=== PATIENT | male | born 1950 ===

== ENCOUNTER 2021-02-08 17:15 | Inpatient (IN) | payer MEDICARE, MEDICAID ==
[~2021-02-08] VITALS: Ht 170.2 cm; Wt 63.1 kg
[2021-02-08] MEDS ORDERED: AMLO10TA4 PO (18:48)
[2021-02-08] MEDS ORDERED: CHOL10004 PO (18:48)
[2021-02-08] MEDS ORDERED: CETI10TA16 PO (18:48)
[2021-02-08] MEDS ORDERED: traZODone 50 MG TABLET. PO PRN (20:00)
[2021-02-08] MEDS ORDERED: TAMS0.4C97 PO (20:03)
[2021-02-08] MEDS ORDERED: TRAZ-120 PO ×2 (20:03)
[2021-02-08] MEDS ORDERED: SERT-267 PO (20:03)
[2021-02-08] MEDS ORDERED: LOVA20TA2 PO (20:03)
[2021-02-08] MEDS ORDERED: LISI2.5T12 PO (20:03)
[2021-02-08] MEDS ORDERED: METF500T16 PO (20:03)
[2021-02-08] MEDS ORDERED: MELO7.5T29 PO (20:03)
[2021-02-08] MEDS ORDERED: DONE10TA7 PO (20:03)
[2021-02-08] MEDS: DONEPEZIL HCL 10 MG TABLET PO SCH (21:13)
[2021-02-08] MEDS: traZODone 50 MG TABLET. PO SCH (21:14)
[2021-02-08 21:23] VITALS: BP 135/76
[2021-02-08] MEDS ORDERED: MAG HYDROX/AL HYDROX/SIMETH 30 ML ORAL.SUSP PO PRN (21:30)
[2021-02-08] MEDS ORDERED: MAGNESIUM HYDROXIDE 2,400 MG/30 ML ORAL.SUSP. PO PRN (21:30)
[2021-02-08] MEDS ORDERED: ACETAMINOPHEN 325 MG TABLET PO PRN (21:30)
[2021-02-08] MEDS ORDERED: METHYL SALICYLATE/MENTHOL TOPICAL OINTMENT 57GM TUBE. TP PRN (21:30)
--- NOTE | 2021-02-09 00:50 | NUR ---
Admission Note with Justification for Admission to [facility] Patient admitted to [facility] for protective oversight for emergency stabilization of acute psychiatric crisis. Pt admitted from: Hospital ER Mode of arrival: Secure Transport Accompanied By: Secure Transport Precipitating behaviors that initiated intake and admission: Pt aggressive to family, not able to be managed in the current setting. Pt to ED found to need appendectomy. Admitted post op to the [facility] surg floor became more confused. Pt will need placement upon discharge most likely. Description of failure of out patient attempts at stabilization in previous setting list behavior and medication trials: meds adjusted, consulted psych. Behaviors and assessment findings upon admission: PT confused and delusional. Thinks he was driving a truck and was routed here accidentally. med compliant and cooperative. Plan: Admit for protective oversight for adjustment and stabilization of medications, behaviors and mood. Intense treatment regimen including groups, medication adjustments, therapy, consistent regimen for ADL's, self care, and sleep hygiene. Daily monitoring by Inpatient staff, Psychiatry, and Medical Physician.
[2021-02-09 06:09] VITALS: BP 138/74
[2021-02-09 06:49] LABS: BASO # 0.1 x10^3/uL (0.0-0.2); BASO % 1 % (0-3); EOS # 0.1 x10^3/uL (0.0-0.7); EOS % 2 % (0-3); HEMATOCRIT 41.2 % (39.0-53.0); HEMOGLOBIN 14.2 g/dL (13.0-17.5); LYMPH # 2.4 x10^3/uL (1.0-4.8); LYMPH % 29 % (24-48); MEAN CORPUSCULAR HEMOGLOBIN 34 pg (25-35); MEAN CORPUSCULAR HGB CONC 34 g/dL (31-37); MEAN CORPUSCULAR VOLUME 100 fL (79-100); MONO # 0.6 x10^3/uL (0.0-1.1); MONO % 7 % (0-9); NEUT # 5.2 x10^3uL (1.8-7.7); NEUT % 62 % (31-73); PLATELET COUNT 325 x10^3/uL (140-400); RED BLOOD COUNT 4.12 x10^6/uL (4.30-5.70); RED CELL DISTRIBUTION WIDTH 14.1 % (11.5-14.5); WHITE BLOOD COUNT 8.5 x10^3/uL (4.0-11.0)
[2021-02-09 06:58] LABS: ALBUMIN 3.7 g/dL (3.4-5.0); ALBUMIN/GLOBULIN RATIO 0.9 (1.0-1.7); CALCIUM 9.1 mg/dL (8.5-10.1); CREATININE 0.9 mg/dL (0.7-1.3); GFR 83.2; POTASSIUM 3.5 mmol/L (3.5-5.1); TOTAL BILIRUBIN 0.5 mg/dL (0.2-1.0); TOTAL PROTEIN 7.8 g/dL (6.4-8.2)
[2021-02-09] MEDS: SERTRALINE 25 MG TABLET. PO SCH (09:02)
[2021-02-09] MEDS: TAMSULOSIN 0.4 MG CAP.ER.24H. PO SCH (11:00)
[2021-02-09] MEDS: LISINOPRIL 2.5 MG TABLET PO SCH (11:28)
[2021-02-09] MEDS: CETIRIZINE HCL 10 MG TABLET PO SCH (11:29)
[2021-02-09] MEDS: amLODIPine BESYLATE 10 MG TABLET PO SCH (11:29)
--- NOTE | 2021-02-09 11:35 | CONS ---
DATE OF CONSULTATION: 02/09/2021 ATTENDING PHYSICIAN: Dr. Hung. We are asked to see this patient for medical consultation. HISTORY OF PRESENT ILLNESS: The patient is a 70-year-old gentleman who came from [facility]. He is a [facility]. He is profoundly demented. He has been quite agitated. He has been living with his niece who has been the primary afloat cryptologic manager. She cannot manage him anymore. It is interestingly enough, he also had medical issues, necessitating admission. He had acute appendicitis and Dr. Naveen Morrison did a recent laparoscopic appendectomy. The wound is clean and dry. PAST MEDICAL HISTORY: Significant for profound dementia. He has agitation. He has benign prostatic hypertrophy, old stroke with minimal residual. He normally doctors at the [facility]. Alcohol and tobacco use is unclear. He is not actively drinking or smoking. ALLERGIES: He has no known drug allergies. CURRENT MEDICATIONS: Include cetirizine, Aricept, Flomax, lovastatin, amlodipine, lisinopril, meloxicam, Zoloft, trazodone, metformin, and vitamin D. FAMILY HISTORY: Unobtainable. REVIEW OF SYSTEMS: Significant for aggressive behavior. He is very forgetful, agitated, impulsive behavior. His niece cannot manage him currently. PHYSICAL EXAMINATION: GENERAL: When I saw him, this is a pleasant, confused elderly gentleman. INITIAL VITAL SIGNS: Showed a blood pressure of 130/76 mmHg, pulse is 72 per minute and regular. He was afebrile, oxygen saturation 97% on room air. HEENT: Head is without trauma. Pupils are reactive. Sclerae nonicteric. Oropharynx is clear. NECK: Supple, no bruits. LUNGS: Clear to auscultation. CARDIOVASCULAR: Regular heart tones. No gallops. ABDOMEN: Soft, scaphoid, nontender to palpation. There is still a bandage over his trocar scars. The wounds are clean and dry. NEUROLOGIC FINDINGS: Focally intact. Pleasantly confused. SKIN: Warm and dry. PERTINENT LABORATORY STUDIES: Admission hemoglobin was 14.2 g/dL with a white count of 8500. ASSESSMENT: 1. This 70-year-old gentleman has profound dementia with behavioral issues. 2. Recent appendicitis, resulting in laparoscopic appendectomy. He is stable from a postoperative standpoint. 3. Essential hypertension. 4. Hyperlipidemia. 5. History of remote cerebrovascular accident with residual deficits. RECOMMENDATIONS: 1. The patient is stable from a medical standpoint. 2. I reviewed his meds and restart his home meds. 3. Thank you again for asking me to see this patient for consultation. We shall gladly follow him during his inpatient course. SHARON DR: Mesha TID: [id number]
--- NOTE | 2021-02-09 14:29 | NUR ---
PATIENT IS AWAKE IN HIS ROOM UPON ASSESSMENT, NICE AND PLEASANT, COOPERATIVE AND COMPLIANT WITH MEDICATIONS. PATIENT STATED HE IS IN [facility] TO SEE THE DOCTOR, STATED HE HAD APPENDECTOMY LAST WEEK AND DEMONSTRATED HIS WOUND DRESSING TO LOW ABDOMEN, DENIED ANY PAIN, STATED IT IS JUST A MILD TENDERNESS. PATIENT WAS OBSERVED LATER IN HIS ROOM READING MAGAZINE. HUMZA.
[2021-02-09 14:58] LABS: THYROID STIM HORMONE (TSH) 0.336 uIU/mL (0.358-3.740)
[2021-02-09 15:45] VITALS: BP 117/68
[2021-02-09] MEDS: metFORMIN 500 MG TABLET PO SCH (17:26)
[2021-02-09] MEDS: traZODone 50 MG TABLET. PO SCH (20:56)
[2021-02-09] MEDS: DONEPEZIL HCL 10 MG TABLET PO SCH (20:56)
[2021-02-09] MEDS: ATORVASTATIN CALCIUM 10 MG TABLET. PO SCH (20:57)
--- NOTE | 2021-02-09 22:44 | HP ---
DATE OF SERVICE: 02/09/2021 ADMIT DATE: 02/08/2021 PSYCHIATRIC ADMISSION HISTORY/EVALUATION This is a late entry, date of service 02/08, covers elements not covered in my initial note of 02/08. I met with the patient on the evening of 02/08 prior to that. Discussed with Julianna Gonzáles, habitat management coordinator, and nursing staff to review. Referral information from [facility] in [place]/[facility]. IDENTIFYING DATA: The patient is a 70-year-old male with a diagnosis of dementia with behavioral disturbance, referred to us from [facility] where he presented with his niece from his home on account of worsening confusion, forgetfulness, increased hostility and aggressive behaviors towards his niece. He was agitated, yelling out, restless, sundowning. The niece was unable to manage him at home. He was impulsive, behaviors were deemed dangerous, unmanageable, had failed outpatient psychiatric intervention resulting in this referral. CHIEF COMPLAINT: "I have been here a long time. The year is 2020. No, I do not know who the president is or who was the president before him." The patient responds to my specify questions to him. HISTORY OF PRESENT ILLNESS: The patient has a history of major neurocognitive disorder, Alzheimer, vascular with delusion, depression, behavioral disturbance. He has been residing with his niece, getting more confused, agitated, paranoid, delusional, aggressive, disruptive. He has had sleep and appetite changes. No active suicidal or homicidal ideation. PAST PSYCHIATRIC HISTORY: As above. MEDICAL HISTORY: Status post nondisplaced intertrochanteric fracture, right femur, 10/21/2020; diabetes mellitus; seizure disorder; history of appendectomy, 02/06/2021; hyperlipidemia; BPH; history of CVA; Accu-Cheks b.i.d. ALLERGIES: Negative. CODE STATUS: Full code. DIET: Diabetic, lactose-free, takes medications crushed in pudding. Ambulates independently with walker. CURRENT PSYCHOTROPICS: Zoloft 12.5 mg daily, trazodone 50 mg at bedtime, Aricept 10 mg at bedtime. FAMILY HISTORY: Noncontributory. SOCIAL HISTORY: No history of alcohol, drug abuse, physical, sexual or elder abuse history is noted. He is not known to be a perpetrator. REACTION TO HOSPITALIZATION: The patient oblivious of this. ASSETS: Supportive family. REVIEW OF SYSTEMS: No CV, , pulmonary, eye, ENT system symptoms on review. Gait slightly unsteady. MENTAL STATUS EXAM: The patient is oriented to himself. Insight, judgment, recent and remote memory, attention, concentration, fund of knowledge poor consistent with his diagnosis. DIAGNOSES: Major neurocognitive disorder; Alzheimer; vascular with delusion; depression; behavioral disturbance; anxiety disorder, unspecified; impulse control disorder, unspecified. Rest as above. PLAN: Admit to geropsychiatry unit at [facility]. I will see the patient daily individually from a psychiatric standpoint, medical followup, Dr. Zarate/Dr. Collins. Continue current psychotropics. Observe baseline, then adjust as clinically indicated. ESTIMATED LENGTH OF STAY: 10-12 days. DISPOSITION PLANS: The patient will possibly need placement depending on his evaluation and treatment and stabilization during this hospitalization. ABBIE DR: Bennett TID: [id number]
--- NOTE | 2021-02-09 22:52 | PDOC ---
Exam Note: Xavi Note: Late entry for 02/08/2021. Please also refer to the separate dictated note~for this date of service dictated separately.~Patient seen individually. Discussed the patient with Nursing staff reviewed the chart.~Reviewed interim history and current functioning. Reviewed vital signs,~Labs/ Radiology~and current medic ations noted below. Continue current treatment with the changes noted in the dictated addendum note Assessment: Vital Signs/I&O: Vital Signs Date Time Temp Pulse Resp B/P (MAP) Pulse Ox O2 Delivery O2 Flow Rate FiO2 02/09/21 15:45 98.0 87 18 117/68 (84) 97 I & O 02/08/21 02/08/21 02/09/21 15:00 23:00 07:00 Intake Total 100 ml Balance 100 ml Labs: Laboratory Tests Test 02/09/21 06:24 White Blood Count 8.5 x10^3/uL (4.0-11.0) Red Blood Count 4.12 x10^6/uL (4.30-5.70) L Hemoglobin 14.2 g/dL (13.0-17.5) Hematocrit 41.2 % (39.0-53.0) Mean Corpuscular Volume 100 fL (79-100) Mean Corpuscular Hemoglobin 34 pg (25-35) Mean Corpuscular Hemoglobin Concent 34 g/dL (31-37) Red Cell Distribution Width 14.1 % (11.5-14.5) Platelet Count 325 x10^3/uL (140-400) Neutrophils (%) (Auto) 62 % (31-73) Lymphocytes (%) (Auto) 29 % (24-48) Monocytes (%) (Auto) 7 % (0-9) Eosinophils (%) (Auto) 2 % (0-3) Basophils (%) (Auto) 1 % (0-3) Neutrophils # (Auto) 5.2 x10^3uL (1.8-7.7) Lymphocytes # (Auto) 2.4 x10^3/uL (1.0-4.8) Monocytes # (Auto) 0.6 x10^3/uL (0.0-1.1) Eosinophils # (Auto) 0.1 x10^3/uL (0.0-0.7) Basophils # (Auto) 0.1 x10^3/uL (0.0-0.2) D-Dimer (Celina) 1.14 mg/L (0.00-0.50) H Sodium Level 139 mmol/L (136-145) Potassium Level 3.5 mmol/L (3.5-5.1) Chloride Level 102 mmol/L (98-107) Carbon Dioxide Level 30 mmol/L (21-32) Anion Gap 7 (6-14) Blood Urea Nitrogen 19 mg/dL (8-26) Creatinine 0.9 mg/dL (0.7-1.3) Estimated GFR (Cockcroft-Gault) 83.2 BUN/Creatinine Ratio 21 (6-20) H Glucose Level 187 mg/dL (70-99) H Calcium Level 9.1 mg/dL (8.5-10.1) Magnesium Level 2.0 mg/dL (1.8-2.4) Iron Level 125 ug/dL (65-175) Total Iron Binding Capacity 303 ug/dL (250-450) Iron Saturation 41 % (15-34) H Total Bilirubin 0.5 mg/dL (0.2-1.0) Aspartate Amino Transferase (AST) 20 U/L (15-37) Alanine Aminotransferase (ALT) 22 U/L (16-63) Alkaline Phosphatase 92 U/L (46-116) Total Protein 7.8 g/dL (6.4-8.2) Albumin 3.7 g/dL (3.4-5.0) Albumin/Globulin Ratio 0.9 (1.0-1.7) L Triglycerides Level 190 mg/dL (0-150) H Cholesterol Level 178 mg/dL (0-200) LDL Cholesterol, Calculated 83 mg/dL (0-100) VLDL Cholesterol, Calculated 38 mg/dL (0-40) Non-HDL Cholesterol Calculated 121 mg/dL (0-129) HDL Cholesterol 57 mg/dL (40-60) Cholesterol/HDL Ratio 3.0 Vitamin B12 Level 301 pg/mL (247-911) 25-Hydroxy Vitamin D Total 32.7 ng/mL (30-100) Thyroid Stimulating Hormone (TSH) 0.336 uIU/mL (0.358-3.740) Thyroxine (T4) 9.0 ug/dL (4.5-12.0) Total Triiodothyronine (TT3) 75 ng/dL (71-180) Treponema pallidum Antibody Nonreactive (Nonreactive) Current Medications: Meds: Laboratory Tests Test 02/09/21 06:24 White Blood Count 8.5 x10^3/uL Red Blood Count 4.12 x10^6/uL Hemoglobin 14.2 g/dL Hematocrit 41.2 % Mean Corpuscular Volume 100 fL Mean Corpuscular Hemoglobin 34 pg Mean Corpuscular Hemoglobin Concent 34 g/dL Red Cell Distribution Width 14.1 % Platelet Count 325 x10^3/uL Neutrophils (%) (Auto) 62 % Lymphocytes (%) (Auto) 29 % Monocytes (%) (Auto) 7 % Eosinophils (%) (Auto) 2 % Basophils (%) (Auto) 1 % Neutrophils # (Auto) 5.2 x10^3uL Lymphocytes # (Auto) 2.4 x10^3/uL Monocytes # (Auto) 0.6 x10^3/uL Eosinophils # (Auto) 0.1 x10^3/uL Basophils # (Auto) 0.1 x10^3/uL D-Dimer (Celina) 1.14 mg/L Sodium Level 139 mmol/L Potassium Level 3.5 mmol/L Chloride Level 102 mmol/L Carbon Dioxide Level 30 mmol/L Anion Gap 7 Blood Urea Nitrogen 19 mg/dL Creatinine 0.9 mg/dL Estimated GFR (Cockcroft-Gault) 83.2 BUN/Creatinine Ratio 21 Glucose Level 187 mg/dL Calcium Level 9.1 mg/dL Magnesium Level 2.0 mg/dL Iron Level 125 ug/dL Total Iron Binding Capacity 303 ug/dL Iron Saturation 41 % Total Bilirubin 0.5 mg/dL Aspartate Amino Transf (AST/SGOT) 20 U/L Alanine Aminotransferase (ALT/SGPT) 22 U/L Alkaline Phosphatase 92 U/L Total Protein 7.8 g/dL Albumin 3.7 g/dL Albumin/Globulin Ratio 0.9 Triglycerides Level 190 mg/dL Cholesterol Level 178 mg/dL LDL Cholesterol, Calculated 83 mg/dL VLDL Cholesterol, Calculated 38 mg/dL Non-HDL Cholesterol Calculated 121 mg/dL HDL Cholesterol 57 mg/dL Cholesterol/HDL Ratio 3.0 Vitamin B12 Level 301 pg/mL 25-Hydroxy Vitamin D Total 32.7 ng/mL Thyroid Stimulating Hormone (TSH) 0.336 uIU/mL Thyroxine (T4) 9.0 ug/dL Total Triiodothyronine 75 ng/dL Treponema pallidum Antibody Nonreactive Current Medications Medications (Trade) Dose Ordered Sig/Melinda Route PRN Reason Start Time Stop Time Status Last Admin Dose Admin Donepezil HCl (Aricept) 10 mg QHS PO 02/08/21 21:00 02/09/21 20:56 Trazodone HCl (Desyrel) 12.5 mg PRN TID PRN PO AGITATION/ANXIETY 02/08/21 20:00 Trazodone HCl (Desyrel) 50 mg QHS PO 02/08/21 21:00 02/09/21 20:56 Sertraline HCl (Zoloft) 12.5 mg DAILY PO 02/09/21 09:00 02/09/21 09:02 Acetaminophen (Tylenol) 650 mg PRN Q6HRS PRN PO MILD PAIN / TEMP > 100.3'F 02/08/21 21:30 Multi-Ingredient Ointment (Analgesic [place]) 1 melchor PRN QID PRN TP MUSCLE PAIN 02/08/21 21:30 Al Hydroxide/Mg Hydroxide (Mylanta Plus Xs) 15 ml PRN AFTMEALHC PRN PO DYSPEPSIA 02/08/21 21:30 Magnesium Hydroxide (Milk Of Magnesia) 2,400 mg PRN QHS PRN PO CONSTIPATION 02/08/21 21:30 Amlodipine Besylate (Norvasc) 10 mg DAILY PO 02/09/21 11:00 02/09/21 11:29 Cetirizine HCl (ZyrTEC) 10 mg DAILY PO 02/09/21 11:00 02/09/21 11:29 Lisinopril (Prinivil) 2.5 mg DAILY PO 02/09/21 11:00 02/09/21 11:28 Metformin HCl (Glucophage) 500 mg DAILYWSUP PO 02/09/21 17:00 02/09/21 17:26 Tamsulosin HCl (Flomax) 0.4 mg DAILY PO 02/09/21 11:00 02/09/21 11:00 Atorvastatin Calcium (Lipitor) 5 mg QHS PO 02/09/21 21:00 02/09/21 20:57 Current Medications Medications (Trade) Dose Ordered Sig/Melinda Route PRN Reason Start Time Stop Time Status Last Admin Dose Admin Sertraline HCl (Zoloft) 12.5 mg DAILY PO 02/09/21 09:00 02/09/21 09:02 Amlodipine Besylate (Norvasc) 10 mg DAILY PO 02/09/21 11:00 02/09/21 11:29 Cetirizine HCl (ZyrTEC) 10 mg DAILY PO 02/09/21 11:00 02/09/21 11:29 Lisinopril (Prinivil) 2.5 mg DAILY PO 02/09/21 11:00 02/09/21 11:28 Metformin HCl (Glucophage) 500 mg DAILYWSUP PO 02/09/21 17:00 02/09/21 17:26 Tamsulosin HCl (Flomax) 0.4 mg DAILY PO 02/09/21 11:00 02/09/21 11:00 Atorvastatin Calcium (Lipitor) 5 mg QHS PO 02/09/21 21:00 02/09/21 20:57 I have reviewed the current psychotropics carefully including drug interactions. Risk benefit ratio favors no change other than as noted in my dictated progress note. Diagnosis: Problems: (1) Major neurocognitive disorder (2) Dementia in Alzheimer's disease with delusions (3) Dementia in Alzheimer's disease with depression (4) Dementia in Alzheimer's disease with early onset with behavioral disturbance (5) Dementia, vascular, with delusions (6) Dementia, vascular, with depression (7) Anxiety disorder, unspecified (8) Impulse control disorder, unspecified FAROOQ DUMONT MD Feb 09, 2021 22:52
--- NOTE | 2021-02-09 22:52 | PDOC ---
Exam Note: Xavi Note: Please also refer to the separate dictated note~for this date of service dictated separately.~Patient seen individually. Discussed the patient with Nursing staff reviewed the chart.~Reviewed interim history and current functioning. Reviewed vital signs,~Labs/ Radiology~and current medications noted below. Continue current treatment with the changes noted in the dictated addendum note Assessment: Vital Signs/I&O: Vital Signs Date Time Temp Pulse Resp B/P (MAP) Pulse Ox O2 Delivery O2 Flow Rate FiO2 02/09/21 15:45 98.0 87 18 117/68 (84) 97 I & O 02/08/21 02/08/21 02/09/21 15:00 23:00 07:00 Intake Total 100 ml Balance 100 ml Labs: Laboratory Tests Test 02/09/21 06:24 White Blood Count 8.5 x10^3/uL (4.0-11.0) Red Blood Count 4.12 x10^6/uL (4.30-5.70) L Hemoglobin 14.2 g/dL (13.0-17.5) Hematocrit 41.2 % (39.0-53.0) Mean Corpuscular Volume 100 fL (79-100) Mean Corpuscular Hemoglobin 34 pg (25-35) Mean Corpuscular Hemoglobin Concent 34 g/dL (31-37) Red Cell Distribution Width 14.1 % (11.5-14.5) Platelet Count 325 x10^3/uL (140-400) Neutrophils (%) (Auto) 62 % (31-73) Lymphocytes (%) (Auto) 29 % (24-48) Monocytes (%) (Auto) 7 % (0-9) Eosinophils (%) (Auto) 2 % (0-3) Basophils (%) (Auto) 1 % (0-3) Neutrophils # (Auto) 5.2 x10^3uL (1.8-7.7) Lymphocytes # (Auto) 2.4 x10^3/uL (1.0-4.8) Monocytes # (Auto) 0.6 x10^3/uL (0.0-1.1) Eosinophils # (Auto) 0.1 x10^3/uL (0.0-0.7) Basophils # (Auto) 0.1 x10^3/uL (0.0-0.2) D-Dimer (Celina) 1.14 mg/L (0.00-0.50) H Sodium Level 139 mmol/L (136-145) Potassium Level 3.5 mmol/L (3.5-5.1) Chloride Level 102 mmol/L (98-107) Carbon Dioxide Level 30 mmol/L (21-32) Anion Gap 7 (6-14) Blood Urea Nitrogen 19 mg/dL (8-26) Creatinine 0.9 mg/dL (0.7-1.3) Estimated GFR (Cockcroft-Gault) 83.2 BUN/Creatinine Ratio 21 (6-20) H Glucose Level 187 mg/dL (70-99) H Calcium Level 9.1 mg/dL (8.5-10.1) Magnesium Level 2.0 mg/dL (1.8-2.4) Iron Level 125 ug/dL (65-175) Total Iron Binding Capacity 303 ug/dL (250-450) Iron Saturation 41 % (15-34) H Total Bilirubin 0.5 mg/dL (0.2-1.0) Aspartate Amino Transferase (AST) 20 U/L (15-37) Alanine Aminotransferase (ALT) 22 U/L (16-63) Alkaline Phosphatase 92 U/L (46-116) Total Protein 7.8 g/dL (6.4-8.2) Albumin 3.7 g/dL (3.4-5.0) Albumin/Globulin Ratio 0.9 (1.0-1.7) L Triglycerides Level 190 mg/dL (0-150) H Cholesterol Level 178 mg/dL (0-200) LDL Cholesterol, Calculated 83 mg/dL (0-100) VLDL Cholesterol, Calculated 38 mg/dL (0-40) Non-HDL Cholesterol Calculated 121 mg/dL (0-129) HDL Cholesterol 57 mg/dL (40-60) Cholesterol/HDL Ratio 3.0 Vitamin B12 Level 301 pg/mL (247-911) 25-Hydroxy Vitamin D Total 32.7 ng/mL (30-100) Thyroid Stimulating Hormone (TSH) 0.336 uIU/mL (0.358-3.740) Thyroxine (T4) 9.0 ug/dL (4.5-12.0) Total Triiodothyronine (TT3) 75 ng/dL (71-180) Treponema pallidum Antibody Nonreactive (Nonreactive) Current Medications: Meds: Laboratory Tests Test 02/09/21 06:24 White Blood Count 8.5 x10^3/uL Red Blood Count 4.12 x10^6/uL Hemoglobin 14.2 g/dL Hematocrit 41.2 % Mean Corpuscular Volume 100 fL Mean Corpuscular Hemoglobin 34 pg Mean Corpuscular Hemoglobin Concent 34 g/dL Red Cell Distribution Width 14.1 % Platelet Count 325 x10^3/uL Neutrophils (%) (Auto) 62 % Lymphocytes (%) (Auto) 29 % Monocytes (%) (Auto) 7 % Eosinophils (%) (Auto) 2 % Basophils (%) (Auto) 1 % Neutrophils # (Auto) 5.2 x10^3uL Lymphocytes # (Auto) 2.4 x10^3/uL Monocytes # (Auto) 0.6 x10^3/uL Eosinophils # (Auto) 0.1 x10^3/uL Basophils # (Auto) 0.1 x10^3/uL D-Dimer (Celina) 1.14 mg/L Sodium Level 139 mmol/L Potassium Level 3.5 mmol/L Chloride Level 102 mmol/L Carbon Dioxide Level 30 mmol/L Anion Gap 7 Blood Urea Nitrogen 19 mg/dL Creatinine 0.9 mg/dL Estimated GFR (Cockcroft-Gault) 83.2 BUN/Creatinine Ratio 21 Glucose Level 187 mg/dL Calcium Level 9.1 mg/dL Magnesium Level 2.0 mg/dL Iron Level 125 ug/dL Total Iron Binding Capacity 303 ug/dL Iron Saturation 41 % Total Bilirubin 0.5 mg/dL Aspartate Amino Transf (AST/SGOT) 20 U/L Alanine Aminotransferase (ALT/SGPT) 22 U/L Alkaline Phosphatase 92 U/L Total Protein 7.8 g/dL Albumin 3.7 g/dL Albumin/Globulin Ratio 0.9 Triglycerides Level 190 mg/dL Cholesterol Level 178 mg/dL LDL Cholesterol, Calculated 83 mg/dL VLDL Cholesterol, Calculated 38 mg/dL Non-HDL Cholesterol Calculated 121 mg/dL HDL Cholesterol 57 mg/dL Cholesterol/HDL Ratio 3.0 Vitamin B12 Level 301 pg/mL 25-Hydroxy Vitamin D Total 32.7 ng/mL Thyroid Stimulating Hormone (TSH) 0.336 uIU/mL Thyroxine (T4) 9.0 ug/dL Total Triiodothyronine 75 ng/dL Treponema pallidum Antibody Nonreactive Current Medications Medications (Trade) Dose Ordered Sig/Melinda Route PRN Reason Start Time Stop Time Status Last Admin Dose Admin Donepezil HCl (Aricept) 10 mg QHS PO 02/08/21 21:00 02/09/21 20:56 Trazodone HCl (Desyrel) 12.5 mg PRN TID PRN PO AGITATION/ANXIETY 02/08/21 20:00 Trazodone HCl (Desyrel) 50 mg QHS PO 02/08/21 21:00 02/09/21 20:56 Sertraline HCl (Zoloft) 12.5 mg DAILY PO 02/09/21 09:00 02/09/21 09:02 Acetaminophen (Tylenol) 650 mg PRN Q6HRS PRN PO MILD PAIN / TEMP > 100.3'F 02/08/21 21:30 Multi-Ingredient Ointment (Analgesic [place]) 1 melchor PRN QID PRN TP MUSCLE PAIN 02/08/21 21:30 Al Hydroxide/Mg Hydroxide (Mylanta Plus Xs) 15 ml PRN AFTMEALHC PRN PO DYSPEPSIA 02/08/21 21:30 Magnesium Hydroxide (Milk Of Magnesia) 2,400 mg PRN QHS PRN PO CONSTIPATION 02/08/21 21:30 Amlodipine Besylate (Norvasc) 10 mg DAILY PO 02/09/21 11:00 02/09/21 11:29 Cetirizine HCl (ZyrTEC) 10 mg DAILY PO 02/09/21 11:00 02/09/21 11:29 Lisinopril (Prinivil) 2.5 mg DAILY PO 02/09/21 11:00 02/09/21 11:28 Metformin HCl (Glucophage) 500 mg DAILYWSUP PO 02/09/21 17:00 02/09/21 17:26 Tamsulosin HCl (Flomax) 0.4 mg DAILY PO 02/09/21 11:00 02/09/21 11:00 Atorvastatin Calcium (Lipitor) 5 mg QHS PO 02/09/21 21:00 02/09/21 20:57 Current Medications Medications (Trade) Dose Ordered Sig/Melinda Route PRN Reason Start Time Stop Time Status Last Admin Dose Admin Sertraline HCl (Zoloft) 12.5 mg DAILY PO 02/09/21 09:00 02/09/21 09:02 Amlodipine Besylate (Norvasc) 10 mg DAILY PO 02/09/21 11:00 02/09/21 11:29 Cetirizine HCl (ZyrTEC) 10 mg DAILY PO 02/09/21 11:00 02/09/21 11:29 Lisinopril (Prinivil) 2.5 mg DAILY PO 02/09/21 11:00 02/09/21 11:28 Metformin HCl (Glucophage) 500 mg DAILYWSUP PO 02/09/21 17:00 02/09/21 17:26 Tamsulosin HCl (Flomax) 0.4 mg DAILY PO 02/09/21 11:00 02/09/21 11:00 Atorvastatin Calcium (Lipitor) 5 mg QHS PO 02/09/21 21:00 02/09/21 20:57 I have reviewed the current psychotropics carefully including drug interactions. Risk benefit ratio favors no change other than as noted in my dictated progress note. Diagnosis: Problems: (1) Impulse control disorder, unspecified (2) Anxiety disorder, unspecified (3) Dementia, vascular, with depression (4) Dementia, vascular, with delusions (5) Dementia in Alzheimer's disease with depression (6) Dementia in Alzheimer's disease with delusions (7) Major neurocognitive disorder (8) Dementia in Alzheimer's disease with early onset with behavioral disturbance FAROOQ DUMONT MD Feb 09, 2021 22:52
--- NOTE | 2021-02-09 23:14 | NUR ---
Pt wandering the unit tonight with 2 female peers. Pleasantly confused. A/O to name, . Pt stated that he was at an apartment complex and that is was [address]. Compliant with whole medications. No agitation or aggression.
--- NOTE | 2021-02-10 00:53 | PN ---
DATE: 02/09/2021 PSYCHIATRIC PROGRESS NOTE This note covers elements not covered in my initial note 02/09/2021. I met with the patient individually on evening of 02/09/2021. SUBJECTIVE: Per RENAY Perez, the patient remains confused, slept 6-3/4 hours previous night, anxious, restless, is gravitating towards other demented patients. REVIEW OF SYSTEMS: No CV, , pulmonary, eye, ENT system symptoms on review. Reliability poor. MENTAL STATUS EXAMINATION: Oriented to himself. Insight, judgment, recent and remote memory, attention, concentration, fund of knowledge poor consistent with his diagnosis: IMPRESSION: Major neurocognitive disorder, Alzheimer, vascular with delusion, depression, behavioral disturbance, anxiety disorder, unspecified; impulse control disorder, unspecified. Rest unchanged from before. PLAN: Continue the patient on his current psychotropics, Aricept 10 mg at bedtime, Zoloft 12.5 mg a day, trazodone 50 mg at bedtime. Observe baseline, then consider adjusting the Zoloft and if aggression resurfaces, may consider treatment on Depakote or if he is psychotic, we will consider atypical antipsychotics. ESTIMATED LENGTH OF STAY: 10-12 days. DISPOSITION PLAN: The patient will probably need placement at discharge. MARIA FERNANDA DR: Bennett TID: [id number]
[2021-02-10 01:13] LABS: HEMOGLOBIN A1C 7.3 % (4.8-5.6)
[2021-02-10 05:52] VITALS: BP 162/74
[2021-02-10] MEDS: amLODIPine BESYLATE 10 MG TABLET PO SCH (08:40)
[2021-02-10] MEDS: SERTRALINE 25 MG TABLET. PO SCH (08:40)
[2021-02-10] MEDS: LISINOPRIL 2.5 MG TABLET PO SCH (08:41)
[2021-02-10] MEDS: TAMSULOSIN 0.4 MG CAP.ER.24H. PO SCH (08:41)
[2021-02-10] MEDS: CETIRIZINE HCL 10 MG TABLET PO SCH (08:41)
--- NOTE | 2021-02-10 10:36 | NUR ---
Nursing note: Pt in room at time of AM med pass and assessment. He is pleasant, compliant with meds whole and cooperative with assessment. He denies having any pain/concerns. Pt has been walking the fried and has been socializing with a couple female pt's on the unit. No behaviors noted at this time. Will continue to monitor.
--- NOTE | 2021-02-10 10:45 | NUR ---
ACTIVITY THERAPY ASSESSMENT completed based on notes, observation and interview. Pt was sitting in the hallway amongst peer. Pt requested to go to room for assessment questions. Pt was pleasant and willing to answer assessment questions. DIGITAL FIELD SERVICE TECHNICIAN, asked pt what he enjoys doing and he said fishing, yardwork, and watching TV. Pt said that he use to like going on walks, crosswords and word searches but is not able to do them as well now. Pt reports that when they go out is when he uses his walker. DIGITAL FIELD SERVICE TECHNICIAN asked pt about his family and he said that he has strained relationship with his and he has no children. Pt said that he came from home but he doesn't picture it as a home. Pt said that he doesn't have many friends either. Pt does not report any stress at this time but when he does experience stress he likes to watch TV to cope. Pt was able to say his birthday but not the current year. Pt was a bit unsure but said that he thought he was in [place]. Pt did report that he does struggle with some memory impairments. DIGITAL FIELD SERVICE TECHNICIAN offered a few magazines which he accepted. Per notes pt has be compliant and interactive sense admission. Initial goal aimed to support socialization and engagement. Pt will participate in at least five Activity Therapy sessions per week.
[2021-02-10 15:56] VITALS: BP 120/69
--- NOTE | 2021-02-10 15:58 | NUR ---
PSYCHOSOCIAL ASSESSMENT ADMISSION DATE: 02/08/21 CONTACT INFORMATION: DPOA/Guardian Contact Name: Dianna Dobbs-carolyneece by marriage/POA Contact Address: [address] [place] [address] [address] Contact Phone #: [phone] ETHNIC ORIGIN: REASONS FOR ADMISSION: Aggressive Agitated Angry Confusion/Disoriented Poor impulse control ADDITIONAL ADMISSION COMMENTS: Per intake record, increasingly hostile,aggressive behavior towards niece, agitated, yelling out, restless, sundowning, niece unable to manage him at home at this time, impulsive. REASON FOR ADMISSION IN PATIENT/FAMILY'S OWN WORDS: As noted above. PATIENT/FAMILY EXPECTATIONS FOR ADMISSION: Per POA, "Get him happy to enjoy the time he's got left." Per Ed, "Have it to the point where I can navigate on my own." LIVING SITUATION: Patient lives with: Extended family Other living arrangements: With Dianna urrutia for the past year. Prior in a residential for two years. Contact Name: Dianna Dobbs Contact Address: [address] [place] [address] [address] [address] Contact Phone #: [phone] FAMILY RELATIONS: Marital Status: # of Marriages: 1 # of Children: 0 [facility] Family Support: Concerned Additional Comments r/t Family: Per report, Ed was to Eboni Paige for approximately 30 years before she . From report, Eboni had bipolar with paranoia tending to isolate themselves from others. Conflict was reported in the family. Ed and Eboni had no children. Ed reported to that he had never been . POA provide this additional information. SIGNIFICANT PSYCHIATRIC/MEDICAL HISTORY: Psychiatric/Treatment History: Ed has had [place] patient mental health services thru [place] [facility] [place]. Ed reported to have struggled with alcohol abuse and drug use (speed) but gave those things up when he was around 39 years old. Pertinent Family History: It was reported that Ed's father may have had dementia. No other mental illness or substance abuse reported in family of origin. HISTORICAL DATA: Childhood Environment: Supportive Childhood Environment Additional Comments: Ed was born in [facility] to Frederick and Alicia Lopez. Frederick was a cobb and Alicia did office work. Ed grew up on a farm in [place]. 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 Ed was the youngest of two children, his older brother being Eneida. Ed described his parents as quiet but supportive. Ed's parents were also described as devoted Catholics. Eneida lives in [facility] but Ed does not have regular contact with him. Trauma History: None Drug Abuse History last 12 months: None Comment: Ed reports a history of smoking, drinking alcohol, and using speed. 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 service: Ed served in the [employer] for three years. He served in the [place] war. Restorationism background: Ed reported he is of the Episcopalian ed. He stated his ed is "quite important" to him and reported that at times of difficulty he depends on God. Sexual orientation: Heterosexual Educational Level: Ed graduated from [employer]. He went on to obtain a bachelors degree in biology from [employer]. Past/Present Interests/Hobbies: Ed has enjoyed fishing, being outdoors, deer hunting, watching tv, reading, and writing. He also likes cats. Financial support/resources: Assisted/Pension Social Security [place] Benefits Monthly income: Unknown-adequate Person handling finances: Dianna Dobbs Do you have a history of legal problems: None reported Cultural considerations: None reported SOCIAL RELATIONSHIPS-CURRENT/PAST: Psychiatrist: ANNALISA Fuentes PCP: MARGOTH Castaneda Counselor/Therapist: N/A Veterans[facility]: As noted Support Group: N/A Chicken Picker/Senior Qa Tester: MARGOTH Wayne Other relationships: Support from ghada STRENGTHS & WEAKNESSES: Patient's strengths: Stable living arrange Education level Ambulatory Patient's weaknesses: Impulsive Health problems Other patient weaknesses: Declining memory PRELIMINARY PLAN OF TREATMENT: Preliminary plan: Dec. Symp. Depression Medication Stabilization Monitor Med Effects Control abnormal behavior Dec. Outbursts Dec. Aggression Other preliminary treatment comments: Ed will be encouraged to attend SW and recreational therapy groups while hospitalized. DISCHARGE PLANNING: Discharge planning/disposition: Home Additional discharge needs identified: F/U with PCP and [place] mental health out patient clinic. Consider day program or PACE services. ADDITIONAL INFORMATION: Other Pertinent Data: SW met with Ed on 02/09/21 to support related to recent admit and complete psychosocial assessment. Ed was sitting on the unit and conversing with two female peers. Ed was agreeable to visit and reported he had been here for "about a week", recalled the year as "2018", recalled the month as "[id number]" and reported he was not in a hospital but was in a mental health facility. Ed needed ample time to process and respond to questions SW asked of him. He had difficulty recalling recent and some remote events. At one point during the conversation, Ed stood up, walked to the hand rail, tapped it two times and came and sat back down. He then repeated this again. SW placed call to Ed's POA this afternoon who provided additional and corrected history. Dianna SMITH, will be involved in team meeting via phone on 02/11/21.
[2021-02-10] MEDS: metFORMIN 500 MG TABLET PO SCH (17:21)
[2021-02-10 17:29] LABS: BILIRUBIN,URINE NEG (NEG); CLARITY,URINE CLEAR; COLOR,URINE YELLOW; GLUCOSE,URINE >=1000 mg/dL (NEG)
[2021-02-10 17:30] LABS: BACTERIA,URINE 0 /HPF (0-FEW); NITRITE,URINE NEG (NEG); RBC,URINE 0 /HPF (0-2); UROBILINOGEN,URINE 0.2 mg/dL (0.2 mg/dL); WBC,URINE 0 /HPF (0-4)
[2021-02-10] MEDS: DONEPEZIL HCL 10 MG TABLET PO SCH (21:16)
[2021-02-10] MEDS: ATORVASTATIN CALCIUM 10 MG TABLET. PO SCH (21:17)
[2021-02-10] MEDS: traZODone 50 MG TABLET. PO SCH (21:17)
--- NOTE | 2021-02-10 21:55 | PDOC ---
Exam Note: Xavi Note: Please also refer to the separate dictated note~for this date of service dictated separately.~Patient seen individually. Discussed the patient with Nursing staff reviewed the chart.~Reviewed interim history and current functioning. Reviewed vital signs,~Labs/ Radiology~and current medications noted below. Continue current treatment with the changes noted in the dictated addendum note Assessment: Vital Signs/I&O: Vital Signs Date Time Temp Pulse Resp B/P (MAP) Pulse Ox O2 Delivery O2 Flow Rate FiO2 02/10/21 15:56 97.8 83 16 120/69 (86) 93 I & O 02/09/21 02/09/21 02/10/21 15:00 23:00 07:00 Intake Total 840 ml 700 ml Balance 840 ml 700 ml Labs: Laboratory Tests Test 02/10/21 06:00 02/10/21 16:50 SARS-CoV-2 (PCR) Not detected (NOT DETECTD) Urine Collection Type Unknown Urine Color Yellow Urine Clarity Clear Urine pH 5.5 Urine Specific [place] 1.020 Urine Protein Neg (NEG-TRACE) Urine Glucose (UA) >=1000 mg/dL (NEG) Urine Ketones (Stick) Trace mg/dL (NEG) Urine Blood Neg (NEG) Urine Nitrite Neg (NEG) Urine Bilirubin Neg (NEG) Urine Urobilinogen Dipstick 0.2 mg/dL (0.2 mg/dL) Urine Leukocyte Esterase Neg (NEG) Urine RBC 0 /HPF (0-2) Urine WBC 0 /HPF (0-4) Urine Bacteria 0 /HPF (0-FEW) Current Medications: Meds: Laboratory Tests Test 02/10/21 06:00 02/10/21 16:50 Coronavirus (COVID-19)(PCR) Not detected Urine Collection Type Unknown Urine Color Yellow Urine Clarity Clear Urine pH 5.5 Urine Specific [place] 1.020 Urine Protein Neg Urine Glucose (UA) >=1000 mg/dL Urine Ketones (Stick) Trace mg/dL Urine Blood Neg Urine Nitrite Neg Urine Bilirubin Neg Urine Urobilinogen Dipstick 0.2 mg/dL Urine Leukocyte Esterase Neg Urine RBC 0 /HPF Urine WBC 0 /HPF Urine Bacteria 0 /HPF Current Medications Medications (Trade) Dose Ordered Sig/Melinda Route PRN Reason Start Time Stop Time Status Last Admin Dose Admin Donepezil HCl (Aricept) 10 mg QHS PO 02/08/21 21:00 02/10/21 21:16 Trazodone HCl (Desyrel) 12.5 mg PRN TID PRN PO AGITATION/ANXIETY 02/08/21 20:00 Trazodone HCl (Desyrel) 50 mg QHS PO 02/08/21 21:00 02/10/21 21:17 Sertraline HCl (Zoloft) 12.5 mg DAILY PO 02/09/21 09:00 02/10/21 18:19 DC 02/10/21 08:40 Acetaminophen (Tylenol) 650 mg PRN Q6HRS PRN PO MILD PAIN / TEMP > 100.3'F 02/08/21 21:30 Multi-Ingredient Ointment (Analgesic [place]) 1 melchor PRN QID PRN TP MUSCLE PAIN 02/08/21 21:30 Al Hydroxide/Mg Hydroxide (Mylanta Plus Xs) 15 ml PRN AFTMEALHC PRN PO DYSPEPSIA 02/08/21 21:30 Magnesium Hydroxide (Milk Of Magnesia) 2,400 mg PRN QHS PRN PO CONSTIPATION 02/08/21 21:30 Amlodipine Besylate (Norvasc) 10 mg DAILY PO 02/09/21 11:00 02/10/21 08:40 Cetirizine HCl (ZyrTEC) 10 mg DAILY PO 02/09/21 11:00 02/10/21 08:41 Lisinopril (Prinivil) 2.5 mg DAILY PO 02/09/21 11:00 02/10/21 08:41 Metformin HCl (Glucophage) 500 mg DAILYWSUP PO 02/09/21 17:00 02/10/21 17:21 Tamsulosin HCl (Flomax) 0.4 mg DAILY PO 02/09/21 11:00 02/10/21 08:41 Atorvastatin Calcium (Lipitor) 5 mg QHS PO 02/09/21 21:00 02/10/21 21:17 Sertraline HCl (Zoloft) 25 mg DAILY PO 02/11/21 09:00 I have reviewed the current psychotropics carefully including drug interactions. Risk benefit ratio favors no change other than as noted in my dictated progress note. Diagnosis: Problems: (1) Impulse control disorder, unspecified (2) Anxiety disorder, unspecified (3) Dementia, vascular, with depression (4) Dementia, vascular, with delusions (5) Dementia in Alzheimer's disease with depression (6) Dementia in Alzheimer's disease with delusions (7) Major neurocognitive disorder (8) Dementia in Alzheimer's disease with early onset with behavioral disturbance FAROOQ DUMONT MD Feb 10, 2021 21:55
[2021-02-11 06:30] VITALS: BP 154/75
--- NOTE | 2021-02-11 06:41 | EKG ---
[address] [address] Test Date: 2021-02-09 Test Time: 09:36:21 Pat Name: SEAN SOLIS Department: Room: [address] [place] [address] Gender: M Detail Manager: : 1950 Requested By: FAROOQ DUMONT Order Number: [id number] Reading MD: Wagner Jeffrey Measurements Intervals [place]hen[place] Rate: P: UT: QRS: QRSD: T: QT: QTc: Interpretive Statements SINUS RHYTHM NON SPECIFIC T WAVE INVERSION ANTERIOR LEADS Electronically Signed On 02-15-2021 14:36:13 CDT by Wagner Jeffrey
[2021-02-11] MEDS: TAMSULOSIN 0.4 MG CAP.ER.24H. PO SCH (09:00)
[2021-02-11] MEDS: LISINOPRIL 2.5 MG TABLET PO SCH (09:06)
[2021-02-11] MEDS: amLODIPine BESYLATE 10 MG TABLET PO SCH (09:06)
[2021-02-11] MEDS: CETIRIZINE HCL 10 MG TABLET PO SCH (09:06)
[2021-02-11] MEDS: SERTRALINE 25 MG TABLET. PO SCH (09:07)
--- NOTE | 2021-02-11 12:02 | TX PLAN ---
Interdisciplinary Tx Plan Admission Information Feb 08, 2021 at 17:15 Legal Status (on Admission): Voluntary, DPOA DPOA/Guardian Name: Dianna Dobbs-ghada by marriage/POA Contact Other Contact Name: Dianna Dobbs Other Contact Verified Code Status: Full Code Allergies: Coded Allergies: No Known Drug Allergies (Unverified , 02/08/21) Estimated Length of Stay: 14 Diagnoses Primary Diagnosis: Major neurocognitive d/o vascular, alzheimers, with delusions, depression, BD; Anxiety d/o unspecified; Impulse control d/o Reasons for Admission: Aggressive, Agitated, Angry, Confusion/Disoriented, Poor impulse control Problem in Patient's Words: As noted above. Additional Admission Comments: Per intake record, increasingly hostile,aggressive behavior towards niece, agitated, yelling out, restless, sundowning, niece unable to manage him at home at this time, impulsive. Problems Active Problems: Hostile Aggressive towards family Yelling out Agitated Restless Impulsive Inactive Problems: Medication complaint Adequate meal intake Averaging 5.5 hours of sleep Pt Strengths/Limitations Ability for [place]: Poor Cognitive Functioning/Ability: Poor Communication Skills/Ability: Fair Financial Resources: Fair Insight/Judgement: Poor Intellectual Ability: Fair Physical Health: Fair Social Skills: Fair Stability in Family: Good Verbal Skills: Fair Discharge Criteria Discharge Criteria: Adequate arrangements @DC, Adequate self-care, Improved behavior Preliminary Discharge Plan Preliminary DC Plan: Home Other Arrangements: Resides with Dianna urrutia Special Precautions Special Precautions: Agitation/Assault Fall Risk: High Initial D/C Plan Will return home with ghada once stable Identified Discharge Needs: F/U with PCP and [place] [facility] out patient [facility]. Consider day program or PACE services. Currently Utilized Resources Currently Utilized Resources/P: [facility] Identified Problems/Hx/Goals Objectives/Short-Term Goals Short Term Goals: Control abnormal behavior, Dec. Aggression, Dec. Outbursts, Dec. Symp. Depression, Medication Stabilization, Monitor Med Effects Short Term Goals in Patient's: Per POA, "Get him happy to enjoy what he's got left." Per Ed, "Have it to the point where I can navigate on my own." Interventions/Frequency Staff Interventions/Frequency&: Nursing to provide routine safety checks, medication administration, and adl support. Psychiatry to see three times weekly. SW to see twice weekly. PT/OT eval and treat as indicated SW and recreational threapy groups as Ed is willing. 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 Social: Ed enjoyed fishing, hunting, and being outdoors. Education: Ed graduated from [employer]. He went on to obtain a bachelors degree in biology from [employer]. Community Follow-up PCP Out patient mental health thru [place] Community Provider/Family Inpu: SARAH Bustamante, participated in team meeting via phone on this date. Treatment Plan Explained Patient/Unemployment Insurance Director had this treatment plan explained to him/her as indicated by the signature below and has been given the opportunity to ask questions and make suggestions: Date: Patient/Unemployment Insurance Director Signature: NICOLE GILBERT Feb 11, 2021 12:02
--- NOTE | 2021-02-11 12:17 | NUR ---
WEEKLY ACTIVITY THERAPY NOTE Date of Admission:02/08/21 Date of AT Assessment: 02/10 Precipitating behaviors that initiated intake and admission:Pt aggressive to family, not able to be managed in the current setting. Pt to ED found to need appendectomy. Admitted post op to the med surg floor became more confused. Pt will need placement upon discharge most likely Goal aimed: support socialization and engagement Initial Goal: Pt will participate in at least five Activity Therapy sessions per week Weekly progress towards goal: goal evaluation begins next week Group participation level: 1 min Weekly highlights: answered a couple grid category questions Monday morning Behaviors observed: pleasant and calm Plan: goal evaluation begins next week Beneficial adaptations: prompting, encouragement
--- NOTE | 2021-02-11 13:59 | NUR ---
Met with Ed this afternoon to complete MMSE. Ed scored 13/30 points indicating possible severe cognitive impairment. Ed was calm and relaxed throughout visit. SW provided Ed with a "fish" word search puzzle and TIME magazine. Ed expressed appreciation.
--- NOTE | 2021-02-11 16:15 | NUR ---
Nursing note: Pt has been pleasant, med compliant and cooperative this shift. He has spent most of the day in the hallway socializing with other pt's. No behaviors noted. Will continue to monitor.
[2021-02-11 16:18] VITALS: BP 149/75
[2021-02-11] MEDS: metFORMIN 500 MG TABLET PO SCH (17:41)
[2021-02-11] MEDS: DONEPEZIL HCL 10 MG TABLET PO SCH (20:46)
[2021-02-11] MEDS: QUEtiapine 25 MG TABLET. PO SCH (20:46)
[2021-02-11] MEDS: ATORVASTATIN CALCIUM 10 MG TABLET. PO SCH (20:46)
[2021-02-11] MEDS: traZODone 50 MG TABLET. PO SCH (20:46)
--- NOTE | 2021-02-11 22:36 | PDOC ---
Exam Note: Xavi Note: Please also refer to the separate dictated note~for this date of service dictated separately.~Patient seen individually. Discussed the patient with Nursing staff reviewed the chart.~Reviewed interim history and current functioning. Reviewed vital signs,~Labs/ Radiology~and current medications noted below. Continue current treatment with the changes noted in the dictated addendum note Assessment: Vital Signs/I&O: Vital Signs Date Time Temp Pulse Resp B/P (MAP) Pulse Ox O2 Delivery O2 Flow Rate FiO2 02/11/21 16:18 98.5 68 18 149/75 (99) 98 I & O 02/10/21 02/10/21 02/11/21 15:00 23:00 07:00 Intake Total 600 ml 540 ml Balance 600 ml 540 ml Current Medications: Meds: Current Medications Medications (Trade) Dose Ordered Sig/Melinda Route PRN Reason Start Time Stop Time Status Last Admin Dose Admin Donepezil HCl (Aricept) 10 mg QHS PO 02/08/21 21:00 02/11/21 20:46 Trazodone HCl (Desyrel) 12.5 mg PRN TID PRN PO AGITATION/ANXIETY 02/08/21 20:00 Trazodone HCl (Desyrel) 50 mg QHS PO 02/08/21 21:00 02/11/21 20:46 Sertraline HCl (Zoloft) 12.5 mg DAILY PO 02/09/21 09:00 02/10/21 18:19 DC 02/10/21 08:40 Acetaminophen (Tylenol) 650 mg PRN Q6HRS PRN PO MILD PAIN / TEMP > 100.3'F 02/08/21 21:30 Multi-Ingredient Ointment (Analgesic [place]) 1 melchor PRN QID PRN TP MUSCLE PAIN 02/08/21 21:30 Al Hydroxide/Mg Hydroxide (Mylanta Plus Xs) 15 ml PRN AFTMEALHC PRN PO DYSPEPSIA 02/08/21 21:30 Magnesium Hydroxide (Milk Of Magnesia) 2,400 mg PRN QHS PRN PO CONSTIPATION 02/08/21 21:30 Amlodipine Besylate (Norvasc) 10 mg DAILY PO 02/09/21 11:00 02/11/21 09:06 Cetirizine HCl (ZyrTEC) 10 mg DAILY PO 02/09/21 11:00 02/11/21 09:06 Lisinopril (Prinivil) 2.5 mg DAILY PO 02/09/21 11:00 02/11/21 09:06 Metformin HCl (Glucophage) 500 mg DAILYWSUP PO 02/09/21 17:00 02/11/21 17:41 Tamsulosin HCl (Flomax) 0.4 mg DAILY PO 02/09/21 11:00 02/11/21 09:00 Atorvastatin Calcium (Lipitor) 5 mg QHS PO 02/09/21 21:00 02/11/21 20:46 Sertraline HCl (Zoloft) 25 mg DAILY PO 02/11/21 09:00 02/11/21 09:07 Quetiapine Fumarate (SEROquel) 25 mg QHS PO 02/11/21 21:00 02/11/21 20:46 Current Medications Medications (Trade) Dose Ordered Sig/Melinda Route PRN Reason Start Time Stop Time Status Last Admin Dose Admin Sertraline HCl (Zoloft) 25 mg DAILY PO 02/11/21 09:00 02/11/21 09:07 Quetiapine Fumarate (SEROquel) 25 mg QHS PO 02/11/21 21:00 02/11/21 20:46 I have reviewed the current psychotropics carefully including drug interactions. Risk benefit ratio favors no change other than as noted in my dictated progress note. Diagnosis: Problems: (1) Impulse control disorder, unspecified (2) Anxiety disorder, unspecified (3) Dementia, vascular, with depression (4) Dementia, vascular, with delusions (5) Dementia in Alzheimer's disease with depression (6) Dementia in Alzheimer's disease with delusions (7) Major neurocognitive disorder (8) Dementia in Alzheimer's disease with early onset with behavioral disturbance FAROOQ DUMONT MD Feb 11, 2021 22:36
--- NOTE | 2021-02-12 04:52 | NUR ---
Nursing Note The patient was located in the hallway for his assessment and medication pass. The patient was interactive with this nurse and was pleasant. The patient took his medication whole. The patient was alert to name, date and location. Currently sleeping in his room.
[2021-02-12 06:13] VITALS: BP 163/81
--- NOTE | 2021-02-12 08:45 | PDOC ---
Exam Note: Xavi Note: This note is a late entry for 02/10/2021 covers elements not covered in my initial note. Subjective: The patient was seen individually in the evening of 02/10/2021 with Elvia NIÑO, discussed and reviewed the chart. The patient slept 5 hours previous night. I met with him in his room in the evening. Patient has been confused, takes his medications whole. UA was repeated straight cath and was negative. Review of Systems: No CV, , pulmonary, eye, ENT system symptoms on review. Reliability poor. Mental Status Exam: The patient is oriented to himself. Insight and judgment, recent and remote memory, attention and concentration, fund of knowledge is poor consistent with his diagnoses. Laboratory Data: Reviewed. Impression: Major neurocognitive disorder Alzheimer, vascular with delusions, depression, behavioral disturbance. Anxiety disorder unspecified. Impulse control disorder unspecified. Plan: Increase Zoloft from 12.5 mg a day to 25 mg a day. Maintain Aricept and trazodone for now. Adjust as clinically indicated. Assessment: Vital Signs/I&O: Vital Signs Date Time Temp Pulse Resp B/P (MAP) Pulse Ox O2 Delivery O2 Flow Rate FiO2 02/12/21 06:13 97.6 72 16 163/81 (108) 98 I & O 02/11/21 02/11/21 02/12/21 15:00 23:00 07:00 Intake Total 930 ml 620 ml Balance 930 ml 620 ml Current Medications: Meds: Current Medications Medications (Trade) Dose Ordered Sig/Melinda Route PRN Reason Start Time Stop Time Status Last Admin Dose Admin Donepezil HCl (Aricept) 10 mg QHS PO 02/08/21 21:00 02/11/21 20:46 Trazodone HCl (Desyrel) 12.5 mg PRN TID PRN PO AGITATION/ANXIETY 02/08/21 20:00 Trazodone HCl (Desyrel) 50 mg QHS PO 02/08/21 21:00 02/11/21 20:46 Sertraline HCl (Zoloft) 12.5 mg DAILY PO 02/09/21 09:00 02/10/21 18:19 DC 02/10/21 08:40 Acetaminophen (Tylenol) 650 mg PRN Q6HRS PRN PO MILD PAIN / TEMP > 100.3'F 02/08/21 21:30 Multi-Ingredient Ointment (Analgesic [place]) 1 melchor PRN QID PRN TP MUSCLE PAIN 02/08/21 21:30 Al Hydroxide/Mg Hydroxide (Mylanta Plus Xs) 15 ml PRN AFTMEALHC PRN PO DYSPEPSIA 02/08/21 21:30 Magnesium Hydroxide (Milk Of Magnesia) 2,400 mg PRN QHS PRN PO CONSTIPATION 02/08/21 21:30 Amlodipine Besylate (Norvasc) 10 mg DAILY PO 02/09/21 11:00 02/11/21 09:06 Cetirizine HCl (ZyrTEC) 10 mg DAILY PO 02/09/21 11:00 02/11/21 09:06 Lisinopril (Prinivil) 2.5 mg DAILY PO 02/09/21 11:00 02/11/21 09:06 Metformin HCl (Glucophage) 500 mg DAILYWSUP PO 02/09/21 17:00 02/11/21 17:41 Tamsulosin HCl (Flomax) 0.4 mg DAILY PO 02/09/21 11:00 02/11/21 09:00 Atorvastatin Calcium (Lipitor) 5 mg QHS PO 02/09/21 21:00 02/11/21 20:46 Sertraline HCl (Zoloft) 25 mg DAILY PO 02/11/21 09:00 02/11/21 09:07 Quetiapine Fumarate (SEROquel) 25 mg QHS PO 02/11/21 21:00 02/11/21 20:46 Current Medications Medications (Trade) Dose Ordered Sig/Melinda Route PRN Reason Start Time Stop Time Status Last Admin Dose Admin Sertraline HCl (Zoloft) 25 mg DAILY PO 02/11/21 09:00 02/11/21 09:07 Quetiapine Fumarate (SEROquel) 25 mg QHS PO 02/11/21 21:00 02/11/21 20:46 I have reviewed the current psychotropics carefully including drug interactions. Risk benefit ratio favors no change other than as noted in my dictated progress note. Diagnosis: Problems: (1) Impulse control disorder, unspecified (2) Anxiety disorder, unspecified (3) Dementia, vascular, with depression (4) Dementia, vascular, with delusions (5) Dementia in Alzheimer's disease with depression (6) Dementia in Alzheimer's disease with delusions (7) Major neurocognitive disorder (8) Dementia in Alzheimer's disease with early onset with behavioral disturbance FAROOQ DUMONT MD Feb 12, 2021 08:45
[2021-02-12] MEDS: TAMSULOSIN 0.4 MG CAP.ER.24H. PO SCH (09:00)
[2021-02-12] MEDS: LISINOPRIL 2.5 MG TABLET PO SCH (09:01)
[2021-02-12] MEDS: SERTRALINE 25 MG TABLET. PO SCH (09:02)
[2021-02-12] MEDS: CETIRIZINE HCL 10 MG TABLET PO SCH (09:02)
[2021-02-12] MEDS: amLODIPine BESYLATE 10 MG TABLET PO SCH (09:02)
--- NOTE | 2021-02-12 09:31 | NUR ---
Pt calm and appropriate this morning. He appears to be in pleasant spirits, he converses with others as well as smiling and laughing freely. He is A&O to name, , date, and location. When asked why he is in the hospital he states "to take care of my appendectomy." Pt denies SI/HI/VH/AH at this time. He rates 2/10 "annoying" pain in his LLQ. A dressing is in place, CDI. No tenderness to palpation, absent of rigidness, no rebound tenderness. Abd active in all 4 quadrants. Pt denies N/V/D when asked. Pt does not appear to be in distress at this present time. Pt is able to sit up and move around without difficulty. Plan of care continues, will pass to next shift.
[2021-02-12 16:02] VITALS: BP 106/64
[2021-02-12] MEDS: metFORMIN 500 MG TABLET PO SCH (17:57)
[2021-02-12] MEDS: QUEtiapine 25 MG TABLET. PO SCH (21:39)
[2021-02-12] MEDS: DONEPEZIL HCL 10 MG TABLET PO SCH (21:39)
[2021-02-12] MEDS: ATORVASTATIN CALCIUM 10 MG TABLET. PO SCH (21:39)
[2021-02-12] MEDS: traZODone 50 MG TABLET. PO SCH (21:39)
--- NOTE | 2021-02-12 21:49 | PDOC ---
Exam Note: Xavi Note: Please also refer to the separate dictated note~for this date of service dictated separately.~Patient seen individually. Discussed the patient with Nursing staff reviewed the chart.~Reviewed interim history and current functioning. Reviewed vital signs,~Labs/ Radiology~and current medications noted below. Continue current treatment with the changes noted in the dictated addendum note Assessment: Vital Signs/I&O: Vital Signs Date Time Temp Pulse Resp B/P (MAP) Pulse Ox O2 Delivery O2 Flow Rate FiO2 02/12/21 16:02 98.0 75 18 106/64 (78) 96 I & O 02/11/21 02/11/21 02/12/21 15:00 23:00 07:00 Intake Total 930 ml 620 ml Balance 930 ml 620 ml Current Medications: Meds: Current Medications Medications (Trade) Dose Ordered Sig/Melinda Route PRN Reason Start Time Stop Time Status Last Admin Dose Admin Donepezil HCl (Aricept) 10 mg QHS PO 02/08/21 21:00 02/12/21 21:39 Trazodone HCl (Desyrel) 12.5 mg PRN TID PRN PO AGITATION/ANXIETY 02/08/21 20:00 Trazodone HCl (Desyrel) 50 mg QHS PO 02/08/21 21:00 02/12/21 21:39 Sertraline HCl (Zoloft) 12.5 mg DAILY PO 02/09/21 09:00 02/10/21 18:19 DC 02/10/21 08:40 Acetaminophen (Tylenol) 650 mg PRN Q6HRS PRN PO MILD PAIN / TEMP > 100.3'F 02/08/21 21:30 Multi-Ingredient Ointment (Analgesic [place]) 1 melchor PRN QID PRN TP MUSCLE PAIN 02/08/21 21:30 Al Hydroxide/Mg Hydroxide (Mylanta Plus Xs) 15 ml PRN AFTMEALHC PRN PO DYSPEPSIA 02/08/21 21:30 Magnesium Hydroxide (Milk Of Magnesia) 2,400 mg PRN QHS PRN PO CONSTIPATION 02/08/21 21:30 Amlodipine Besylate (Norvasc) 10 mg DAILY PO 02/09/21 11:00 02/12/21 09:02 Cetirizine HCl (ZyrTEC) 10 mg DAILY PO 02/09/21 11:00 02/12/21 09:02 Lisinopril (Prinivil) 2.5 mg DAILY PO 02/09/21 11:00 02/12/21 09:01 Metformin HCl (Glucophage) 500 mg DAILYWSUP PO 02/09/21 17:00 02/12/21 17:57 Tamsulosin HCl (Flomax) 0.4 mg DAILY PO 02/09/21 11:00 02/12/21 09:00 Atorvastatin Calcium (Lipitor) 5 mg QHS PO 02/09/21 21:00 02/12/21 21:39 Sertraline HCl (Zoloft) 25 mg DAILY PO 02/11/21 09:00 02/12/21 09:02 Quetiapine Fumarate (SEROquel) 25 mg QHS PO 02/11/21 21:00 02/12/21 21:39 I have reviewed the current psychotropics carefully including drug interactions. Risk benefit ratio favors no change other than as noted in my dictated progress note. Diagnosis: Problems: (1) Impulse control disorder, unspecified (2) Anxiety disorder, unspecified (3) Dementia, vascular, with depression (4) Dementia, vascular, with delusions (5) Dementia in Alzheimer's disease with depression (6) Dementia in Alzheimer's disease with delusions (7) Major neurocognitive disorder (8) Dementia in Alzheimer's disease with early onset with behavioral disturbance FAROOQ DUMONT MD Feb 12, 2021 21:49
--- NOTE | 2021-02-13 03:50 | NUR ---
Nursing Note The patient was located in his room for his assessment and medication pass. The patient took his medication whole and was pleasant during interactions. The patient had some delusions this shift thinking he was to have abdominal surgery in the morning. After talking with this nurse the patient was reassured that he was in fact not having surgery the next day. The patient is currently sleeping in his room.
[2021-02-13 06:12] VITALS: BP 130/68
[2021-02-13] MEDS: LISINOPRIL 2.5 MG TABLET PO SCH (09:08)
[2021-02-13] MEDS: CETIRIZINE HCL 10 MG TABLET PO SCH (09:08)
[2021-02-13] MEDS: TAMSULOSIN 0.4 MG CAP.ER.24H. PO SCH (09:08)
[2021-02-13] MEDS: SERTRALINE 25 MG TABLET. PO SCH (09:08)
[2021-02-13] MEDS: amLODIPine BESYLATE 10 MG TABLET PO SCH (09:09)
[2021-02-13 15:23] VITALS: BP 139/67
--- NOTE | 2021-02-13 17:11 | NUR ---
Pt up adl in [place]. Has been pleasant. Compliant with meds and cares.
[2021-02-13] MEDS: metFORMIN 500 MG TABLET PO SCH (17:21)
[2021-02-13] MEDS: traZODone 50 MG TABLET. PO SCH (21:30)
[2021-02-13] MEDS: ATORVASTATIN CALCIUM 10 MG TABLET. PO SCH (21:31)
[2021-02-13] MEDS: DONEPEZIL HCL 10 MG TABLET PO SCH (21:31)
[2021-02-13] MEDS: QUEtiapine 25 MG TABLET. PO SCH (21:31)
--- NOTE | 2021-02-13 22:16 | PDOC ---
Exam Note: Xavi Note: Please also refer to the separate dictated note~for this date of service dictated separately.~Patient seen individually. Discussed the patient with Nursing staff reviewed the chart.~Reviewed interim history and current functioning. Reviewed vital signs,~Labs/ Radiology~and current medications noted below. Continue current treatment with the changes noted in the dictated addendum note Assessment: Vital Signs/I&O: Vital Signs Date Time Temp Pulse Resp B/P (MAP) Pulse Ox O2 Delivery O2 Flow Rate FiO2 02/13/21 15:23 97.6 83 18 139/67 (91) 97 I & O 02/12/21 02/12/21 02/13/21 15:00 23:00 07:00 Intake Total 560 ml 340 ml Balance 560 ml 340 ml Current Medications: Meds: Current Medications Medications (Trade) Dose Ordered Sig/Melinda Route PRN Reason Start Time Stop Time Status Last Admin Dose Admin Donepezil HCl (Aricept) 10 mg QHS PO 02/08/21 21:00 02/13/21 21:31 Trazodone HCl (Desyrel) 12.5 mg PRN TID PRN PO AGITATION/ANXIETY 02/08/21 20:00 Trazodone HCl (Desyrel) 50 mg QHS PO 02/08/21 21:00 02/13/21 21:30 Sertraline HCl (Zoloft) 12.5 mg DAILY PO 02/09/21 09:00 02/10/21 18:19 DC 02/10/21 08:40 Acetaminophen (Tylenol) 650 mg PRN Q6HRS PRN PO MILD PAIN / TEMP > 100.3'F 02/08/21 21:30 Multi-Ingredient Ointment (Analgesic [place]) 1 melchor PRN QID PRN TP MUSCLE PAIN 02/08/21 21:30 Al Hydroxide/Mg Hydroxide (Mylanta Plus Xs) 15 ml PRN AFTMEALHC PRN PO DYSPEPSIA 02/08/21 21:30 Magnesium Hydroxide (Milk Of Magnesia) 2,400 mg PRN QHS PRN PO CONSTIPATION 02/08/21 21:30 Amlodipine Besylate (Norvasc) 10 mg DAILY PO 02/09/21 11:00 02/13/21 09:09 Cetirizine HCl (ZyrTEC) 10 mg DAILY PO 02/09/21 11:00 02/13/21 09:08 Lisinopril (Prinivil) 2.5 mg DAILY PO 02/09/21 11:00 02/13/21 09:08 Metformin HCl (Glucophage) 500 mg DAILYWSUP PO 02/09/21 17:00 02/13/21 17:21 Tamsulosin HCl (Flomax) 0.4 mg DAILY PO 02/09/21 11:00 02/13/21 09:08 Atorvastatin Calcium (Lipitor) 5 mg QHS PO 02/09/21 21:00 02/13/21 21:31 Sertraline HCl (Zoloft) 25 mg DAILY PO 02/11/21 09:00 02/13/21 09:08 Quetiapine Fumarate (SEROquel) 25 mg QHS PO 02/11/21 21:00 02/13/21 21:31 I have reviewed the current psychotropics carefully including drug interactions. Risk benefit ratio favors no change other than as noted in my dictated progress note. Diagnosis: Problems: (1) Impulse control disorder, unspecified (2) Anxiety disorder, unspecified (3) Dementia, vascular, with depression (4) Dementia, vascular, with delusions (5) Dementia in Alzheimer's disease with depression (6) Dementia in Alzheimer's disease with delusions (7) Major neurocognitive disorder (8) Dementia in Alzheimer's disease with early onset with behavioral disturbance FAROOQ DUMONT MD Feb 13, 2021 22:16
--- NOTE | 2021-02-14 03:42 | NUR ---
Nursing Note The patient was calm and compliant this shift. The patient took his medication whole and was alert to name, date and location. The patient was interactive with peers. Currently sleeping in his room.
[2021-02-14 05:56] VITALS: BP 134/70
[2021-02-14] MEDS: amLODIPine BESYLATE 10 MG TABLET PO SCH (08:34)
[2021-02-14] MEDS: TAMSULOSIN 0.4 MG CAP.ER.24H. PO SCH (08:34)
[2021-02-14] MEDS: SERTRALINE 25 MG TABLET. PO SCH (08:34)
[2021-02-14] MEDS: LISINOPRIL 2.5 MG TABLET PO SCH (08:35)
[2021-02-14] MEDS: CETIRIZINE HCL 10 MG TABLET PO SCH (08:35)
--- NOTE | 2021-02-14 08:56 | PDOC ---
Exam Note: Xavi Note: This note is a late entry for 02/11/2021 covers elements not covered in my initial note. Subjective: The patient was reviewed at treatment team meeting individually in the morning on 02/11/2021 with Nava NIÑO, Backup Administrative Coordinator, Cheyanne Regan, Julianna Suarez, and Becky Macario (drug abuse social worker), Helen, activity therapy and Elvia NIÑO, discussed and reviewed the chart. The patient slept 3-1/2 hours previous night. Appetite 80%. He refused flu vaccine on admission. He has been confused, withdrawn to his room at times. Attended one group. Review of Systems: No CV, , pulmonary, eye, ENT system symptoms on review. Reliability poor. Mental Status Exam: The patient is oriented to himself. I met with him at some length in his room in the evening. Insight and judgment, recent and remote memory, attention and concentration, fund of knowledge is poor consistent with his diagnoses. Laboratory Data: Reviewed. Impression: Major neurocognitive disorder Alzheimer, vascular with delusions, depression, behavioral disturbance. Anxiety disorder unspecified. Impulse control disorder unspecified. Plan: We will get the patients past neuropsychological testing which was done at the [facility]. Maintain psychotropics including Zoloft, trazodone, Aricept. Adjust as clinically indicated. Assessment: Vital Signs/I&O: Vital Signs Date Time Temp Pulse Resp B/P (MAP) Pulse Ox O2 Delivery O2 Flow Rate FiO2 02/14/21 08:35 78 134/70 02/14/21 05:56 97.6 18 98 I & O 02/13/21 02/13/21 02/14/21 15:00 23:00 07:00 Intake Total 840 ml 720 ml Balance 840 ml 720 ml Labs: Laboratory Tests Test 02/14/21 07:48 Glucose (Fingerstick) 224 mg/dL (70-99) H Current Medications: Meds: Laboratory Tests Test 02/14/21 07:48 Glucose (Fingerstick) 224 mg/dL Current Medications Medications (Trade) Dose Ordered Sig/Melinda Route PRN Reason Start Time Stop Time Status Last Admin Dose Admin Donepezil HCl (Aricept) 10 mg QHS PO 02/08/21 21:00 02/13/21 21:31 Trazodone HCl (Desyrel) 12.5 mg PRN TID PRN PO AGITATION/ANXIETY 02/08/21 20:00 Trazodone HCl (Desyrel) 50 mg QHS PO 02/08/21 21:00 02/13/21 21:30 Sertraline HCl (Zoloft) 12.5 mg DAILY PO 02/09/21 09:00 02/10/21 18:19 DC 02/10/21 08:40 Acetaminophen (Tylenol) 650 mg PRN Q6HRS PRN PO MILD PAIN / TEMP > 100.3'F 02/08/21 21:30 Multi-Ingredient Ointment (Analgesic [place]) 1 melchor PRN QID PRN TP MUSCLE PAIN 02/08/21 21:30 Al Hydroxide/Mg Hydroxide (Mylanta Plus Xs) 15 ml PRN AFTMEALHC PRN PO DYSPEPSIA 02/08/21 21:30 Magnesium Hydroxide (Milk Of Magnesia) 2,400 mg PRN QHS PRN PO CONSTIPATION 02/08/21 21:30 Amlodipine Besylate (Norvasc) 10 mg DAILY PO 02/09/21 11:00 02/14/21 08:34 Cetirizine HCl (ZyrTEC) 10 mg DAILY PO 02/09/21 11:00 02/14/21 08:35 Lisinopril (Prinivil) 2.5 mg DAILY PO 02/09/21 11:00 02/14/21 08:35 Metformin HCl (Glucophage) 500 mg DAILYWSUP PO 02/09/21 17:00 02/13/21 17:21 Tamsulosin HCl (Flomax) 0.4 mg DAILY PO 02/09/21 11:00 02/14/21 08:34 Atorvastatin Calcium (Lipitor) 5 mg QHS PO 02/09/21 21:00 02/13/21 21:31 Sertraline HCl (Zoloft) 25 mg DAILY PO 02/11/21 09:00 02/14/21 08:34 Quetiapine Fumarate (SEROquel) 25 mg QHS PO 02/11/21 21:00 02/13/21 21:31 I have reviewed the current psychotropics carefully including drug interactions. Risk benefit ratio favors no change other than as noted in my dictated progress note. Diagnosis: Problems: (1) Impulse control disorder, unspecified (2) Anxiety disorder, unspecified (3) Dementia, vascular, with depression (4) Dementia, vascular, with delusions (5) Dementia in Alzheimer's disease with depression (6) Dementia in Alzheimer's disease with delusions (7) Major neurocognitive disorder (8) Dementia in Alzheimer's disease with early onset with behavioral disturbance FAROOQ DUMONT MD Feb 14, 2021 08:56
--- NOTE | 2021-02-14 09:12 | PDOC ---
Exam Note: Xavi Note: This note is a late entry for 02/12/2021 covers elements not covered in my initial note. Subjective: The patient was seen individually in the evening of 02/12/2021 with Leonel NIÑO, discussed and reviewed the chart. The patient slept 6 hours previous night. I met with the patient in his room. He remains withdrawn, confused, but otherwise, pleasant, compliant with medications. Review of Systems: No CV, , pulmonary, eye, ENT system symptoms on review. Reliability poor. Mental Status Exam: The patient is oriented to himself. Insight and judgment, recent and remote memory, attention and concentration, fund of knowledge is poor consistent with his diagnoses. Laboratory Data: Reviewed. Impression: Major neurocognitive disorder Alzheimer, vascular with delusions, depression, behavioral disturbance. Anxiety disorder unspecified. Impulse control disorder unspecified. Plan: Maintain psychotropics unchanged. Assessment: Vital Signs/I&O: Vital Signs Date Time Temp Pulse Resp B/P (MAP) Pulse Ox O2 Delivery O2 Flow Rate FiO2 02/14/21 08:35 78 134/70 02/14/21 05:56 97.6 18 98 I & O 02/13/21 02/13/21 02/14/21 15:00 23:00 07:00 Intake Total 840 ml 720 ml Balance 840 ml 720 ml Labs: Laboratory Tests Test 02/14/21 07:48 Glucose (Fingerstick) 224 mg/dL (70-99) H Current Medications: Meds: Laboratory Tests Test 02/14/21 07:48 Glucose (Fingerstick) 224 mg/dL Current Medications Medications (Trade) Dose Ordered Sig/Melinda Route PRN Reason Start Time Stop Time Status Last Admin Dose Admin Donepezil HCl (Aricept) 10 mg QHS PO 02/08/21 21:00 02/13/21 21:31 Trazodone HCl (Desyrel) 12.5 mg PRN TID PRN PO AGITATION/ANXIETY 02/08/21 20:00 Trazodone HCl (Desyrel) 50 mg QHS PO 02/08/21 21:00 02/13/21 21:30 Sertraline HCl (Zoloft) 12.5 mg DAILY PO 02/09/21 09:00 02/10/21 18:19 DC 02/10/21 08:40 Acetaminophen (Tylenol) 650 mg PRN Q6HRS PRN PO MILD PAIN / TEMP > 100.3'F 02/08/21 21:30 Multi-Ingredient Ointment (Analgesic [place]) 1 melchor PRN QID PRN TP MUSCLE PAIN 02/08/21 21:30 Al Hydroxide/Mg Hydroxide (Mylanta Plus Xs) 15 ml PRN AFTMEALHC PRN PO DYSPEPSIA 02/08/21 21:30 Magnesium Hydroxide (Milk Of Magnesia) 2,400 mg PRN QHS PRN PO CONSTIPATION 02/08/21 21:30 Amlodipine Besylate (Norvasc) 10 mg DAILY PO 02/09/21 11:00 02/14/21 08:34 Cetirizine HCl (ZyrTEC) 10 mg DAILY PO 02/09/21 11:00 02/14/21 08:35 Lisinopril (Prinivil) 2.5 mg DAILY PO 02/09/21 11:00 02/14/21 08:35 Metformin HCl (Glucophage) 500 mg DAILYWSUP PO 02/09/21 17:00 02/13/21 17:21 Tamsulosin HCl (Flomax) 0.4 mg DAILY PO 02/09/21 11:00 02/14/21 08:34 Atorvastatin Calcium (Lipitor) 5 mg QHS PO 02/09/21 21:00 02/13/21 21:31 Sertraline HCl (Zoloft) 25 mg DAILY PO 02/11/21 09:00 02/14/21 08:34 Quetiapine Fumarate (SEROquel) 25 mg QHS PO 02/11/21 21:00 02/13/21 21:31 I have reviewed the current psychotropics carefully including drug interactions. Risk benefit ratio favors no change other than as noted in my dictated progress note. Diagnosis: Problems: (1) Impulse control disorder, unspecified (2) Anxiety disorder, unspecified (3) Dementia, vascular, with depression (4) Dementia, vascular, with delusions (5) Dementia in Alzheimer's disease with depression (6) Dementia in Alzheimer's disease with delusions (7) Major neurocognitive disorder (8) Dementia in Alzheimer's disease with early onset with behavioral disturbance FAROOQ DUMONT MD Feb 14, 2021 09:12
--- NOTE | 2021-02-14 12:10 | NUR ---
NURSING NOTE PT WAS IN HALLWAY THIS AM UPON ASSESSMENT AND MEDICATION ADMINISTRATION. PT IS A&OX1 THIS AM, CONFUSION. PT DENIES ANY PAIN. PT HAD SURGICAL BANDAGE ON LOWER ABD THAT WAS SATURATED IN URINE, HAS BEEN CHANGED. PT IS CALM AND COOPERATIVE, INTERACTIVE WITH OTHER PATIENTS AND STAFF. PT NEEDS REMINDED THAT THE STAFF WILL ASSIST OTHER PATIENTS TO THE RESTROOM, PT ATTEMPTED TO HELP ANOTHER PT TO THE RESTROOM THIS MORNING. PT IS INDEPENDENT WITH HIS MEALS AND TAKES MEDS WHOLE WITH NO COMPLICATIONS. RENAY FARIA.
--- NOTE | 2021-02-14 15:42 | NUR ---
assumed care of patient at 1400. Patient located in the [facility] and is visiting with peer.
[2021-02-14 16:01] VITALS: BP 115/70
[2021-02-14] MEDS: metFORMIN 500 MG TABLET PO SCH (17:13)
[2021-02-14] MEDS: DONEPEZIL HCL 10 MG TABLET PO SCH (20:40)
[2021-02-14] MEDS: ATORVASTATIN CALCIUM 10 MG TABLET. PO SCH (20:41)
[2021-02-14] MEDS: traZODone 50 MG TABLET. PO SCH (20:41)
[2021-02-14] MEDS: QUEtiapine 25 MG TABLET. PO SCH (20:41)
--- NOTE | 2021-02-14 22:00 | PDOC ---
Exam Note: Xavi Note: Please also refer to the separate dictated note~for this date of service dictated separately.~Patient seen individually. Discussed the patient with Nursing staff reviewed the chart.~Reviewed interim history and current functioning. Reviewed vital signs,~Labs/ Radiology~and current medications noted below. Continue current treatment with the changes noted in the dictated addendum note Assessment: Vital Signs/I&O: Vital Signs Date Time Temp Pulse Resp B/P (MAP) Pulse Ox O2 Delivery O2 Flow Rate FiO2 02/14/21 16:01 97.0 72 16 115/70 (85) 97 I & O 02/13/21 02/13/21 02/14/21 15:00 23:00 07:00 Intake Total 840 ml 720 ml Balance 840 ml 720 ml Labs: Laboratory Tests Test 02/14/21 07:48 Glucose (Fingerstick) 224 mg/dL (70-99) H Current Medications: Meds: Laboratory Tests Test 02/14/21 07:48 Glucose (Fingerstick) 224 mg/dL Current Medications Medications (Trade) Dose Ordered Sig/Melinda Route PRN Reason Start Time Stop Time Status Last Admin Dose Admin Donepezil HCl (Aricept) 10 mg QHS PO 02/08/21 21:00 02/14/21 20:40 Trazodone HCl (Desyrel) 12.5 mg PRN TID PRN PO AGITATION/ANXIETY 02/08/21 20:00 Trazodone HCl (Desyrel) 50 mg QHS PO 02/08/21 21:00 02/14/21 20:41 Sertraline HCl (Zoloft) 12.5 mg DAILY PO 02/09/21 09:00 02/10/21 18:19 DC 02/10/21 08:40 Acetaminophen (Tylenol) 650 mg PRN Q6HRS PRN PO MILD PAIN / TEMP > 100.3'F 02/08/21 21:30 Multi-Ingredient Ointment (Analgesic [place]) 1 melchor PRN QID PRN TP MUSCLE PAIN 02/08/21 21:30 Al Hydroxide/Mg Hydroxide (Mylanta Plus Xs) 15 ml PRN AFTMEALHC PRN PO DYSPEPSIA 02/08/21 21:30 Magnesium Hydroxide (Milk Of Magnesia) 2,400 mg PRN QHS PRN PO CONSTIPATION 02/08/21 21:30 Amlodipine Besylate (Norvasc) 10 mg DAILY PO 02/09/21 11:00 02/14/21 08:34 Cetirizine HCl (ZyrTEC) 10 mg DAILY PO 02/09/21 11:00 02/14/21 08:35 Lisinopril (Prinivil) 2.5 mg DAILY PO 02/09/21 11:00 02/14/21 08:35 Metformin HCl (Glucophage) 500 mg DAILYWSUP PO 02/09/21 17:00 02/14/21 17:13 Tamsulosin HCl (Flomax) 0.4 mg DAILY PO 02/09/21 11:00 02/14/21 08:34 Atorvastatin Calcium (Lipitor) 5 mg QHS PO 02/09/21 21:00 02/14/21 20:41 Sertraline HCl (Zoloft) 25 mg DAILY PO 02/11/21 09:00 02/14/21 08:34 Quetiapine Fumarate (SEROquel) 25 mg QHS PO 02/11/21 21:00 02/14/21 20:41 I have reviewed the current psychotropics carefully including drug interactions. Risk benefit ratio favors no change other than as noted in my dictated progress note. Diagnosis: Problems: (1) Impulse control disorder, unspecified (2) Anxiety disorder, unspecified (3) Dementia, vascular, with depression (4) Dementia, vascular, with delusions (5) Dementia in Alzheimer's disease with depression (6) Dementia in Alzheimer's disease with delusions (7) Major neurocognitive disorder (8) Dementia in Alzheimer's disease with early onset with behavioral disturbance FAROOQ DUMONT MD Feb 14, 2021 22:00
--- NOTE | 2021-02-14 22:30 | NUR ---
Patient has been wandering in the [facility]. He is calm and pleasant. He stated he is "here because he needs his appendix out" and there has been "a government mix up". He was unable to elaborate further. Patient was calm in the shower and compliant with his medications crushed. Patient has bandage over two laproscopic incisions from his appendectomy 02/06/21. Bandage changed after shower, no signs of infection noted.
[2021-02-15 05:58] VITALS: BP 117/59
[2021-02-15] MEDS: TAMSULOSIN 0.4 MG CAP.ER.24H. PO SCH (09:03)
[2021-02-15] MEDS: CETIRIZINE HCL 10 MG TABLET PO SCH (09:03)
[2021-02-15] MEDS: LISINOPRIL 2.5 MG TABLET PO SCH (09:03)
[2021-02-15] MEDS: amLODIPine BESYLATE 10 MG TABLET PO SCH (09:04)
[2021-02-15] MEDS: SERTRALINE 25 MG TABLET. PO SCH (09:04)
[2021-02-15 16:07] VITALS: BP 119/66
[2021-02-15] MEDS: metFORMIN 500 MG TABLET PO SCH (17:39)
[2021-02-15] MEDS: DONEPEZIL HCL 10 MG TABLET PO SCH (20:55)
[2021-02-15] MEDS: QUEtiapine 25 MG TABLET. PO SCH (20:55)
[2021-02-15] MEDS: ATORVASTATIN CALCIUM 10 MG TABLET. PO SCH (20:55)
[2021-02-15] MEDS: traZODone 50 MG TABLET. PO SCH (20:55)
--- NOTE | 2021-02-15 21:56 | PDOC ---
Exam Note: Xavi Note: Please also refer to the separate dictated note~for this date of service dictated separately.~Patient seen individually. Discussed the patient with Nursing staff reviewed the chart.~Reviewed interim history and current functioning. Reviewed vital signs,~Labs/ Radiology~and current medications noted below. Continue current treatment with the changes noted in the dictated addendum note Assessment: Vital Signs/I&O: Vital Signs Date Time Temp Pulse Resp B/P (MAP) Pulse Ox O2 Delivery O2 Flow Rate FiO2 02/15/21 16:07 98.3 79 18 119/66 (83) 97 I & O 02/14/21 02/14/21 02/15/21 15:00 23:00 07:00 Intake Total 840 ml 480 ml Balance 840 ml 480 ml Current Medications: Meds: Current Medications Medications (Trade) Dose Ordered Sig/Melinda Route PRN Reason Start Time Stop Time Status Last Admin Dose Admin Donepezil HCl (Aricept) 10 mg QHS PO 02/08/21 21:00 02/15/21 20:55 Trazodone HCl (Desyrel) 12.5 mg PRN TID PRN PO AGITATION/ANXIETY 02/08/21 20:00 Trazodone HCl (Desyrel) 50 mg QHS PO 02/08/21 21:00 02/15/21 20:55 Sertraline HCl (Zoloft) 12.5 mg DAILY PO 02/09/21 09:00 02/10/21 18:19 DC 02/10/21 08:40 Acetaminophen (Tylenol) 650 mg PRN Q6HRS PRN PO MILD PAIN / TEMP > 100.3'F 02/08/21 21:30 Multi-Ingredient Ointment (Analgesic [place]) 1 melchor PRN QID PRN TP MUSCLE PAIN 02/08/21 21:30 Al Hydroxide/Mg Hydroxide (Mylanta Plus Xs) 15 ml PRN AFTMEALHC PRN PO DYSPEPSIA 02/08/21 21:30 Magnesium Hydroxide (Milk Of Magnesia) 2,400 mg PRN QHS PRN PO CONSTIPATION 02/08/21 21:30 Amlodipine Besylate (Norvasc) 10 mg DAILY PO 02/09/21 11:00 02/15/21 09:04 Cetirizine HCl (ZyrTEC) 10 mg DAILY PO 02/09/21 11:00 02/15/21 09:03 Lisinopril (Prinivil) 2.5 mg DAILY PO 02/09/21 11:00 02/15/21 09:03 Metformin HCl (Glucophage) 500 mg DAILYWSUP PO 02/09/21 17:00 02/15/21 17:39 Tamsulosin HCl (Flomax) 0.4 mg DAILY PO 02/09/21 11:00 02/15/21 09:03 Atorvastatin Calcium (Lipitor) 5 mg QHS PO 02/09/21 21:00 02/15/21 20:55 Sertraline HCl (Zoloft) 25 mg DAILY PO 02/11/21 09:00 02/15/21 09:04 Quetiapine Fumarate (SEROquel) 25 mg QHS PO 02/11/21 21:00 02/15/21 20:55 I have reviewed the current psychotropics carefully including drug interactions. Risk benefit ratio favors no change other than as noted in my dictated progress note. Diagnosis: Problems: (1) Impulse control disorder, unspecified (2) Anxiety disorder, unspecified (3) Dementia, vascular, with depression (4) Dementia, vascular, with delusions (5) Dementia in Alzheimer's disease with depression (6) Dementia in Alzheimer's disease with delusions (7) Major neurocognitive disorder (8) Dementia in Alzheimer's disease with early onset with behavioral disturbance FAROOQ DUMONT MD Feb 15, 2021 21:56
--- NOTE | 2021-02-15 23:18 | NUR ---
Patient has been moved from the west[facility]observation [facility] to the east/program [facility] today. He is social with peers and cooperative with staff. Patient sits in a chair outside of nurses station and has been appropriate in his interactions with others. Patient is calm, cooperative and med compliant. He has displayed no hostility or aggressive behaviors at his time. Will continue to monitor.
[2021-02-16 05:50] VITALS: BP 148/83
[2021-02-16] MEDS: TAMSULOSIN 0.4 MG CAP.ER.24H. PO SCH (08:27)
[2021-02-16] MEDS: SERTRALINE 25 MG TABLET. PO SCH (08:27)
[2021-02-16] MEDS: CETIRIZINE HCL 10 MG TABLET PO SCH (08:27)
[2021-02-16] MEDS: LISINOPRIL 2.5 MG TABLET PO SCH (08:27)
[2021-02-16] MEDS: amLODIPine BESYLATE 10 MG TABLET PO SCH (08:27)
--- NOTE | 2021-02-16 09:15 | PDOC ---
Exam Note: Xavi Note: This note is a late entry for 02/13/2021 covers elements not covered in my initial note. Subjective: The patient was seen individually in the evening of 02/13/2021 with Torri NIÑO, discussed and reviewed the chart. The patient slept 4-3/4 hours previous night. She has been confused. As I met with him in his room, he was oblivious to his surroundings, repeatedly asking me if we do this every day. Review of Systems: No CV, , pulmonary, eye, ENT system symptoms on review. Mental Status Exam: The patient is oriented to himself. Insight and judgment, recent and remote memory, attention and concentration, fund of knowledge is poor consistent with his diagnoses. Laboratory Data: Reviewed. Impression: Major neurocognitive disorder Alzheimer, vascular with delusions, depression, behavioral disturbance. Anxiety disorder unspecified. Impulse control disorder unspecified. Plan: Maintain psychotropics unchanged. Assessment: Vital Signs/I&O: Vital Signs Date Time Temp Pulse Resp B/P (MAP) Pulse Ox O2 Delivery O2 Flow Rate FiO2 02/16/21 08:27 70 148/83 02/16/21 05:50 97.6 18 97 Room Air I & O 02/15/21 02/15/21 02/16/21 15:00 23:00 07:00 Intake Total 840 ml 480 ml Balance 840 ml 480 ml Current Medications: Meds: Current Medications Medications (Trade) Dose Ordered Sig/Melinda Route PRN Reason Start Time Stop Time Status Last Admin Dose Admin Donepezil HCl (Aricept) 10 mg QHS PO 02/08/21 21:00 02/15/21 20:55 Trazodone HCl (Desyrel) 12.5 mg PRN TID PRN PO AGITATION/ANXIETY 02/08/21 20:00 Trazodone HCl (Desyrel) 50 mg QHS PO 02/08/21 21:00 02/15/21 20:55 Sertraline HCl (Zoloft) 12.5 mg DAILY PO 02/09/21 09:00 02/10/21 18:19 DC 02/10/21 08:40 Acetaminophen (Tylenol) 650 mg PRN Q6HRS PRN PO MILD PAIN / TEMP > 100.3'F 02/08/21 21:30 Multi-Ingredient Ointment (Analgesic [place]) 1 melchor PRN QID PRN TP MUSCLE PAIN 02/08/21 21:30 Al Hydroxide/Mg Hydroxide (Mylanta Plus Xs) 15 ml PRN AFTMEALHC PRN PO DYSPEPSIA 02/08/21 21:30 Magnesium Hydroxide (Milk Of Magnesia) 2,400 mg PRN QHS PRN PO CONSTIPATION 02/08/21 21:30 Amlodipine Besylate (Norvasc) 10 mg DAILY PO 02/09/21 11:00 02/16/21 08:27 Cetirizine HCl (ZyrTEC) 10 mg DAILY PO 02/09/21 11:00 02/16/21 08:27 Lisinopril (Prinivil) 2.5 mg DAILY PO 02/09/21 11:00 02/16/21 08:27 Metformin HCl (Glucophage) 500 mg DAILYWSUP PO 02/09/21 17:00 02/15/21 17:39 Tamsulosin HCl (Flomax) 0.4 mg DAILY PO 02/09/21 11:00 02/16/21 08:27 Atorvastatin Calcium (Lipitor) 5 mg QHS PO 02/09/21 21:00 02/15/21 20:55 Sertraline HCl (Zoloft) 25 mg DAILY PO 02/11/21 09:00 02/16/21 08:27 Quetiapine Fumarate (SEROquel) 25 mg QHS PO 02/11/21 21:00 02/15/21 20:55 I have reviewed the current psychotropics carefully including drug interactions. Risk benefit ratio favors no change other than as noted in my dictated progress note. 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
--- NOTE | 2021-02-16 10:02 | PDOC ---
Exam Note: Xavi Note: This note is a late entry for 02/14/2021 covers elements not covered in my initial note. Subjective: The patient was seen individually in the evening of 02/14/2021 with Linda NIÑO, discussed and reviewed the chart. The patient slept 5-1/2 hours previous night. He remains confused, stated he was here to get his appendix taken out. He has been trying to help some of the other demented patients, redirects, not aggressive, disruptive. Review of Systems: No CV, , pulmonary, eye, ENT system symptoms on review. Reliability poor. Mental Status Exam: The patient is oriented to himself. Insight and judgment, recent and remote memory, attention and concentration, fund of knowledge is poor consistent with his diagnoses. Laboratory Data: Reviewed. Impression: Major neurocognitive disorder Alzheimer, vascular with delusions, depression, behavioral disturbance. Anxiety disorder unspecified. Impulse control disorder unspecified. Plan: Maintain psychotropics unchanged. Assessment: Vital Signs/I&O: Vital Signs Date Time Temp Pulse Resp B/P (MAP) Pulse Ox O2 Delivery O2 Flow Rate FiO2 02/16/21 08:27 70 148/83 02/16/21 05:50 97.6 18 97 Room Air I & O 02/15/21 02/15/21 02/16/21 15:00 23:00 07:00 Intake Total 840 ml 480 ml Balance 840 ml 480 ml Current Medications: Meds: Current Medications Medications (Trade) Dose Ordered Sig/Melinda Route PRN Reason Start Time Stop Time Status Last Admin Dose Admin Donepezil HCl (Aricept) 10 mg QHS PO 02/08/21 21:00 02/15/21 20:55 Trazodone HCl (Desyrel) 12.5 mg PRN TID PRN PO AGITATION/ANXIETY 02/08/21 20:00 Trazodone HCl (Desyrel) 50 mg QHS PO 02/08/21 21:00 02/15/21 20:55 Sertraline HCl (Zoloft) 12.5 mg DAILY PO 02/09/21 09:00 02/10/21 18:19 DC 02/10/21 08:40 Acetaminophen (Tylenol) 650 mg PRN Q6HRS PRN PO MILD PAIN / TEMP > 100.3'F 02/08/21 21:30 Multi-Ingredient Ointment (Analgesic [place]) 1 melchor PRN QID PRN TP MUSCLE PAIN 02/08/21 21:30 Al Hydroxide/Mg Hydroxide (Mylanta Plus Xs) 15 ml PRN AFTMEALHC PRN PO DYSPEPSIA 02/08/21 21:30 Magnesium Hydroxide (Milk Of Magnesia) 2,400 mg PRN QHS PRN PO CONSTIPATION 02/08/21 21:30 Amlodipine Besylate (Norvasc) 10 mg DAILY PO 02/09/21 11:00 02/16/21 08:27 Cetirizine HCl (ZyrTEC) 10 mg DAILY PO 02/09/21 11:00 02/16/21 08:27 Lisinopril (Prinivil) 2.5 mg DAILY PO 02/09/21 11:00 02/16/21 08:27 Metformin HCl (Glucophage) 500 mg DAILYWSUP PO 02/09/21 17:00 02/15/21 17:39 Tamsulosin HCl (Flomax) 0.4 mg DAILY PO 02/09/21 11:00 02/16/21 08:27 Atorvastatin Calcium (Lipitor) 5 mg QHS PO 02/09/21 21:00 02/15/21 20:55 Sertraline HCl (Zoloft) 25 mg DAILY PO 02/11/21 09:00 02/16/21 08:27 Quetiapine Fumarate (SEROquel) 25 mg QHS PO 02/11/21 21:00 02/15/21 20:55 I have reviewed the current psychotropics carefully including drug interactions. Risk benefit ratio favors no change other than as noted in my dictated progress note. Diagnosis: Problems: (1) Impulse control disorder, unspecified (2) Anxiety disorder, unspecified (3) Dementia, vascular, with depression (4) Dementia, vascular, with delusions (5) Dementia in Alzheimer's disease with depression (6) Dementia in Alzheimer's disease with delusions (7) Major neurocognitive disorder (8) Dementia in Alzheimer's disease with early onset with behavioral disturbance FAROOQ DUMONT MD Feb 16, 2021 10:02
[2021-02-16 11:05] LABS: BASO % 1 % (0-3); EOS % 1 % (0-3); HEMATOCRIT 36.9 % (39.0-53.0); HEMOGLOBIN 12.6 g/dL (13.0-17.5); LYMPH # 1.3 x10^3/uL (1.0-4.8); LYMPH % 19 % (24-48); MEAN CORPUSCULAR HEMOGLOBIN 34 pg (25-35); MEAN CORPUSCULAR HGB CONC 34 g/dL (31-37); MEAN CORPUSCULAR VOLUME 101 fL (79-100); MONO # 0.5 x10^3/uL (0.0-1.1); MONO % 8 % (0-9); NEUT # 4.7 x10^3uL (1.8-7.7); NEUT % 72 % (31-73); PLATELET COUNT 350 x10^3/uL (140-400); RED BLOOD COUNT 3.67 x10^6/uL (4.30-5.70); RED CELL DISTRIBUTION WIDTH 14.1 % (11.5-14.5); WHITE BLOOD COUNT 6.6 x10^3/uL (4.0-11.0)
[2021-02-16 11:10] LABS: ALBUMIN 3.5 g/dL (3.4-5.0); ALBUMIN/GLOBULIN RATIO 0.9 (1.0-1.7); CREATININE 1.1 mg/dL (0.7-1.3); POTASSIUM 4.3 mmol/L (3.5-5.1); TOTAL BILIRUBIN 0.3 mg/dL (0.2-1.0); TOTAL PROTEIN 7.3 g/dL (6.4-8.2)
--- NOTE | 2021-02-16 11:52 | NUR ---
Nursing note: Pt in dining room at time of AM med pass and assessment. He is pleasant, med compliant and cooperative. Pt denies having any pain/concerns. He is currently walking down the hallway to the dining room for lunch. Will continue to monitor.
[2021-02-16 16:07] VITALS: BP 147/69
[2021-02-16] MEDS: metFORMIN 500 MG TABLET PO SCH (17:04)
[2021-02-16] MEDS: DONEPEZIL HCL 10 MG TABLET PO SCH (21:09)
[2021-02-16] MEDS: traZODone 50 MG TABLET. PO SCH (21:09)
[2021-02-16] MEDS: QUEtiapine 25 MG TABLET. PO SCH (21:09)
[2021-02-16] MEDS: ATORVASTATIN CALCIUM 10 MG TABLET. PO SCH (21:09)
--- NOTE | 2021-02-16 21:57 | PDOC ---
Exam Note: Xavi Note: Please also refer to the separate dictated note~for this date of service dictated separately.~Patient seen individually. Discussed the patient with Nursing staff reviewed the chart.~Reviewed interim history and current functioning. Reviewed vital signs,~Labs/ Radiology~and current medications noted below. Continue current treatment with the changes noted in the dictated addendum note Assessment: Vital Signs/I&O: Vital Signs Date Time Temp Pulse Resp B/P (MAP) Pulse Ox O2 Delivery O2 Flow Rate FiO2 02/16/21 16:07 98.1 79 16 147/69 (95) 97 02/16/21 05:50 Room Air I & O 02/15/21 02/15/21 02/16/21 15:00 23:00 07:00 Intake Total 840 ml 480 ml Balance 840 ml 480 ml Labs: Laboratory Tests Test 02/16/21 10:15 White Blood Count 6.6 x10^3/uL (4.0-11.0) Red Blood Count 3.67 x10^6/uL (4.30-5.70) L Hemoglobin 12.6 g/dL (13.0-17.5) L Hematocrit 36.9 % (39.0-53.0) L Mean Corpuscular Volume 101 fL (79-100) H Mean Corpuscular Hemoglobin 34 pg (25-35) Mean Corpuscular Hemoglobin Concent 34 g/dL (31-37) Red Cell Distribution Width 14.1 % (11.5-14.5) Platelet Count 350 x10^3/uL (140-400) Neutrophils (%) (Auto) 72 % (31-73) Lymphocytes (%) (Auto) 19 % (24-48) L Monocytes (%) (Auto) 8 % (0-9) Eosinophils (%) (Auto) 1 % (0-3) Basophils (%) (Auto) 1 % (0-3) Neutrophils # (Auto) 4.7 x10^3uL (1.8-7.7) Lymphocytes # (Auto) 1.3 x10^3/uL (1.0-4.8) Monocytes # (Auto) 0.5 x10^3/uL (0.0-1.1) Eosinophils # (Auto) 0.0 x10^3/uL (0.0-0.7) Basophils # (Auto) 0.0 x10^3/uL (0.0-0.2) Sodium Level 135 mmol/L (136-145) L Potassium Level 4.3 mmol/L (3.5-5.1) Chloride Level 99 mmol/L (98-107) Carbon Dioxide Level 26 mmol/L (21-32) Anion Gap 10 (6-14) Blood Urea Nitrogen 16 mg/dL (8-26) Creatinine 1.1 mg/dL (0.7-1.3) Estimated GFR (Cockcroft-Gault) 66.0 BUN/Creatinine Ratio 15 (6-20) Glucose Level 318 mg/dL (70-99) H Calcium Level 9.0 mg/dL (8.5-10.1) Total Bilirubin 0.3 mg/dL (0.2-1.0) Aspartate Amino Transferase (AST) 17 U/L (15-37) Alanine Aminotransferase (ALT) 28 U/L (16-63) Alkaline Phosphatase 92 U/L (46-116) Total Protein 7.3 g/dL (6.4-8.2) Albumin 3.5 g/dL (3.4-5.0) Albumin/Globulin Ratio 0.9 (1.0-1.7) L Current Medications: Meds: Laboratory Tests Test 02/16/21 10:15 White Blood Count 6.6 x10^3/uL Red Blood Count 3.67 x10^6/uL Hemoglobin 12.6 g/dL Hematocrit 36.9 % Mean Corpuscular Volume 101 fL Mean Corpuscular Hemoglobin 34 pg Mean Corpuscular Hemoglobin Concent 34 g/dL Red Cell Distribution Width 14.1 % Platelet Count 350 x10^3/uL Neutrophils (%) (Auto) 72 % Lymphocytes (%) (Auto) 19 % Monocytes (%) (Auto) 8 % Eosinophils (%) (Auto) 1 % Basophils (%) (Auto) 1 % Neutrophils # (Auto) 4.7 x10^3uL Lymphocytes # (Auto) 1.3 x10^3/uL Monocytes # (Auto) 0.5 x10^3/uL Eosinophils # (Auto) 0.0 x10^3/uL Basophils # (Auto) 0.0 x10^3/uL Sodium Level 135 mmol/L Potassium Level 4.3 mmol/L Chloride Level 99 mmol/L Carbon Dioxide Level 26 mmol/L Anion Gap 10 Blood Urea Nitrogen 16 mg/dL Creatinine 1.1 mg/dL Estimated GFR (Cockcroft-Gault) 66.0 BUN/Creatinine Ratio 15 Glucose Level 318 mg/dL Calcium Level 9.0 mg/dL Total Bilirubin 0.3 mg/dL Aspartate Amino Transf (AST/SGOT) 17 U/L Alanine Aminotransferase (ALT/SGPT) 28 U/L Alkaline Phosphatase 92 U/L Total Protein 7.3 g/dL Albumin 3.5 g/dL Albumin/Globulin Ratio 0.9 Current Medications Medications (Trade) Dose Ordered Sig/Melinda Route PRN Reason Start Time Stop Time Status Last Admin Dose Admin Donepezil HCl (Aricept) 10 mg QHS PO 02/08/21 21:00 02/16/21 21:09 Trazodone HCl (Desyrel) 12.5 mg PRN TID PRN PO AGITATION/ANXIETY 02/08/21 20:00 Trazodone HCl (Desyrel) 50 mg QHS PO 02/08/21 21:00 02/16/21 21:09 Sertraline HCl (Zoloft) 12.5 mg DAILY PO 02/09/21 09:00 02/10/21 18:19 DC 02/10/21 08:40 Acetaminophen (Tylenol) 650 mg PRN Q6HRS PRN PO MILD PAIN / TEMP > 100.3'F 02/08/21 21:30 Multi-Ingredient Ointment (Analgesic [place]) 1 melchor PRN QID PRN TP MUSCLE PAIN 02/08/21 21:30 Al Hydroxide/Mg Hydroxide (Mylanta Plus Xs) 15 ml PRN AFTMEALHC PRN PO DYSPEPSIA 02/08/21 21:30 Magnesium Hydroxide (Milk Of Magnesia) 2,400 mg PRN QHS PRN PO CONSTIPATION 02/08/21 21:30 Amlodipine Besylate (Norvasc) 10 mg DAILY PO 02/09/21 11:00 02/16/21 08:27 Cetirizine HCl (ZyrTEC) 10 mg DAILY PO 02/09/21 11:00 02/16/21 08:27 Lisinopril (Prinivil) 2.5 mg DAILY PO 02/09/21 11:00 02/16/21 08:27 Metformin HCl (Glucophage) 500 mg DAILYWSUP PO 02/09/21 17:00 02/16/21 17:04 Tamsulosin HCl (Flomax) 0.4 mg DAILY PO 02/09/21 11:00 02/16/21 08:27 Atorvastatin Calcium (Lipitor) 5 mg QHS PO 02/09/21 21:00 02/16/21 21:09 Sertraline HCl (Zoloft) 25 mg DAILY PO 02/11/21 09:00 02/16/21 08:27 Quetiapine Fumarate (SEROquel) 25 mg QHS PO 02/11/21 21:00 02/16/21 21:09 I have reviewed the current psychotropics carefully including drug interactions. Risk benefit ratio favors no change other than as noted in my dictated progress note. Diagnosis: Problems: (1) Impulse control disorder, unspecified (2) Anxiety disorder, unspecified (3) Dementia, vascular, with depression (4) Dementia, vascular, with delusions (5) Dementia in Alzheimer's disease with depression (6) Dementia in Alzheimer's disease with delusions (7) Major neurocognitive disorder (8) Dementia in Alzheimer's disease with early onset with behavioral disturbance FAROOQ DUMONT MD Feb 16, 2021 21:57
--- NOTE | 2021-02-17 02:29 | NUR ---
Patient is pleasant and calm, med compliant and cooperative with staff. He is interactive with staff and spends time socializing with his peers. Patient has been taking his medications whole without any difficulty. No adverse behaviors noted this shift.
[2021-02-17 06:28] VITALS: BP 132/73
[2021-02-17] MEDS: TAMSULOSIN 0.4 MG CAP.ER.24H. PO SCH (08:14)
[2021-02-17] MEDS: SERTRALINE 25 MG TABLET. PO SCH (08:14)
[2021-02-17] MEDS: LISINOPRIL 2.5 MG TABLET PO SCH (08:14)
[2021-02-17] MEDS: amLODIPine BESYLATE 10 MG TABLET PO SCH (08:14)
[2021-02-17] MEDS: CETIRIZINE HCL 10 MG TABLET PO SCH (08:16)
--- NOTE | 2021-02-17 09:59 | NUR ---
Nursing note: Pt in dining room at time of AM med pass and assessment. He is pleasant, med compliant and cooperative. Pt denies having any pain/concerns. He is currently in the day room socializing with other patients. Will continue to monitor.
[2021-02-17 15:51] VITALS: BP 146/76
[2021-02-17] MEDS: metFORMIN 500 MG TABLET PO SCH (17:39)
[2021-02-17] MEDS: traZODone 50 MG TABLET. PO SCH (20:19)
[2021-02-17] MEDS: QUEtiapine 25 MG TABLET. PO SCH (20:19)
[2021-02-17] MEDS: ATORVASTATIN CALCIUM 10 MG TABLET. PO SCH (20:19)
[2021-02-17] MEDS: DONEPEZIL HCL 10 MG TABLET PO SCH (20:19)
--- NOTE | 2021-02-17 23:54 | NUR ---
Pt sitting in hallway this evening visiting with peers. Calm and pleasant. Compliant with whole medications. No agitation or aggression.
--- NOTE | 2021-02-18 00:46 | PN ---
DATE: 02/15/2021 PSYCHIATRIC PROGRESS NOTE This late entry 02/15/2021 covers elements not covered in my initial note of 02/15/2021. Discussed with RENAY Mckeon. SUBJECTIVE: The patient slept 5-1/2 hours previous night. Takes his medications whole. Less agitated, yelling out, remains confused with added sundowning. REVIEW OF SYSTEMS: No CV, , pulmonary, eye, ENT system symptoms on review. Reliability poor. MENTAL STATUS EXAMINATION: Oriented to himself. Insight, judgment, recent and remote memory, attention, concentration, fund of knowledge poor consistent with his diagnosis. IMPRESSION: Major neurocognitive disorder, Alzheimer, vascular with delusion, depression, behavioral disturbance. Rest unchanged. PLAN: Continue psychotropics from initial note, Zoloft, trazodone, Aricept and Seroquel. Adjust as clinically indicated. YOAN DR: Bennett TID: [id number]
--- NOTE | 2021-02-18 00:48 | PN ---
DATE: 02/16/2021 PSYCHIATRIC PROGRESS NOTE This late entry 02/16 covers elements not covered in my initial note. SUBJECTIVE: I met with the patient on the evening of 02/16. Discussed with RENAY Mckeon. The patient slept 7-1/2 hours previous night. He remains confused, wanders the hallways, attended groups, somewhat social. Takes medications whole. REVIEW OF SYSTEMS: No CV, , pulmonary, eye, ENT system symptoms on review. Reliability poor. He was pleasant, smiling. Oblivious of his surroundings as I met with him. MENTAL STATUS EXAMINATION: He is oriented to himself. Insight, judgment, recent and remote memory, attention, concentration, fund of knowledge poor consistent with his diagnosis. IMPRESSION: Major neurocognitive disorder, Alzheimer, vascular with delusion, depression, behavioral disturbance, anxiety disorder, unspecified; impulse control disorder, unspecified. Rest unchanged from admission. PLAN: Continue current psychotropics, Zoloft, trazodone, Seroquel, and Aricept. Adjust further as clinically indicated. BECCA DR: Bennett TID: [id number]
[2021-02-18 05:43] VITALS: BP 151/77
[2021-02-18] MEDS: TAMSULOSIN 0.4 MG CAP.ER.24H. PO SCH (07:55)
[2021-02-18] MEDS: LISINOPRIL 2.5 MG TABLET PO SCH (07:55)
[2021-02-18] MEDS: SERTRALINE 25 MG TABLET. PO SCH (07:55)
[2021-02-18] MEDS: CETIRIZINE HCL 10 MG TABLET PO SCH (07:55)
[2021-02-18] MEDS: amLODIPine BESYLATE 10 MG TABLET PO SCH (07:56)
--- NOTE | 2021-02-18 08:42 | PDOC ---
Exam Note: Xavi Note: Late entry for 02/17/2021. Please also refer to the separate dictated note~for this date of service dictated separately.~Patient seen individually. Discussed the patient with Nursing staff reviewed the chart.~Reviewed interim history and current functioning. Reviewed vital signs,~Labs/ Radiology~and current medic ations noted below. Continue current treatment with the changes noted in the dictated addendum note Assessment: Vital Signs/I&O: Vital Signs Date Time Temp Pulse Resp B/P (MAP) Pulse Ox O2 Delivery O2 Flow Rate FiO2 02/18/21 07:56 71 151/77 02/18/21 05:43 98.1 16 97 02/16/21 05:50 Room Air I & O 02/17/21 02/17/21 02/18/21 15:00 23:00 07:00 Intake Total 840 ml 600 ml Balance 840 ml 600 ml Current Medications: I have reviewed the current psychotropics carefully including drug interactions. Risk benefit ratio favors no change other than as noted in my dictated progress note. Diagnosis: Problems: (1) Impulse control disorder, unspecified (2) Anxiety disorder, unspecified (3) Dementia, vascular, with depression (4) Dementia, vascular, with delusions (5) Dementia in Alzheimer's disease with depression (6) Dementia in Alzheimer's disease with delusions (7) Major neurocognitive disorder (8) Dementia in Alzheimer's disease with early onset with behavioral disturbance FAROOQ DUMONT MD Feb 18, 2021 08:42
--- NOTE | 2021-02-18 11:11 | NUR ---
WEEKLY ACTIVITY THERAPY NOTE Date of Admission:02/08/21 Date of AT Assessment: 02/10 Precipitating behaviors that initiated intake and admission:Pt aggressive to family, not able to be managed in the current setting. Pt to ED found to need appendectomy. Admitted post op to the med surg floor became more confused. Pt will need placement upon discharge most likely Goal aimed: support socialization and engagement Initial Goal: Pt will participate in at least five Activity Therapy sessions per week Weekly progress towards goal: achieved, / Group participation level: 5 mod, 1 full Weekly highlights: shared and discussed his comfort zone with group Monday, participated in some homar chi Monday, watched some of the comedy hour group Monday Behaviors observed: pleasant, calm, social Plan: no change to goal- pending discharge 02/19 Beneficial adaptations: socialization, engagement
--- NOTE | 2021-02-18 11:27 | TX PLAN ---
Interdisciplinary Tx Plan Admission Information Feb 08, 2021 at 17:15 Legal Status (on Admission): Voluntary, DPOA DPOA/Guardian Name: Dianna Dobbs-ghada by marriage/POA Contact Other Contact Name: Dianna Dobbs Other Contact Verified Code Status: Full Code Allergies: Coded Allergies: No Known Drug Allergies (Unverified , 02/08/21) Estimated Length of Stay: 14 Diagnoses Primary Diagnosis: Major neurocognitive d/o vascular, alzheimers, with delusions, depression, BD; Anxiety d/o unspecified; Impulse control d/o Reasons for Admission: Aggressive, Agitated, Angry, Confusion/Disoriented, Poor impulse control Problem in Patient's Words: As noted above. Additional Admission Comments: Per intake record, increasingly hostile,aggressive behavior towards niece, agitated, yelling out, restless, sundowning, niece unable to manage him at home at this time, impulsive. Problems Active Problems: Hostile Aggressive towards family Yelling out Agitated Restless Impulsive Inactive Problems: Medication complaint Adequate meal intake Averaging 5.5 hours of sleep Pt Strengths/Limitations Ability for [place]: Poor Cognitive Functioning/Ability: Poor Communication Skills/Ability: Fair Financial Resources: Fair Insight/Judgement: Poor Intellectual Ability: Fair Physical Health: Fair Social Skills: Fair Stability in Family: Good Verbal Skills: Fair Discharge Criteria Discharge Criteria: Adequate arrangements @DC, Adequate self-care, Improved behavior Preliminary Discharge Plan Preliminary DC Plan: Home Other Arrangements: Resides with Dianna urrutia Special Precautions Special Precautions: Agitation/Assault Fall Risk: High Initial D/C Plan Will return home with ghada once stable Identified Discharge Needs: F/U with PCP and [place] [facility] out patient clinic. Consider day program or PACE services. Currently Utilized Resources Currently Utilized Resources/P: [facility] Identified Problems/Hx/Goals Objectives/Short-Term Goals Short Term Goals: Control abnormal behavior, Dec. Aggression, Dec. Outbursts, Dec. Symp. Depression, Medication Stabilization, Monitor Med Effects Short Term Goals in Patient's: Per POA, "Get him happy to enjoy what he's got left." Per Ed, "Have it to the point where I can navigate on my own." Interventions/Frequency Staff Interventions/Frequency&: Nursing to provide routine safety checks, medication administration, and adl support. Psychiatry to see three times weekly. SW to see twice weekly. PT/OT eval and treat as indicated SW and recreational threapy groups as Ed is willing. 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 Social: Ed enjoyed fishing, hunting, and being outdoors. Education: Ed graduated from [employer]. He went on to obtain a bachelors degree in biology from [employer]. Community Follow-up PCP Out patient mental health thru [place] Community Provider/Family Inpu: SARAH Bustamante, participated in team meeting via phone on this date. Treatment Plan Explained Patient/Corporate Health Consultant had this treatment plan explained to him/her as indicated by the signature below and has been given the opportunity to ask questions and make suggestions: Date: Patient/Corporate Health Consultant Signature: Status Update Update WEEKLY NOTE/UPDATE: Ed is averaging 100% of meal intakes and 6 hours of sleep at night. He has been doing well and has had no recent behavioral issues. He is observed to be social with peers and staff. Ed attended six group activities in the past week and was fully engaged in the activities and contributed to the groups. Ed scored 13/30 on MMSE indicating possible severe cognitive impairment. Ed has been medication compliant. SARAH Bustamante, participated in team meeting via phone. D/C is being coordinated and planned for 02/19/21. Dianna provides 24 hour care and supervision to Ed in the home. NICOLE GILBERT Feb 18, 2021 11:26
--- NOTE | 2021-02-18 12:51 | NUR ---
In preparation for Ed's d/c tomorrow, Dianna/SARAH, preferred transport be arranged. Call placed to [facility] out of [place] who had no availability for tomorrow. Call placed to [facility] at [employer], , and transportation is scheduled for 11am product picker on 02/19/21. Minnie will contact Dianna to confirm billing information.
--- NOTE | 2021-02-18 12:58 | NUR ---
[facility] Social Work Discharge Planning Form Patient Name SEAN SOLIS Admit Date: 02/08/21 DISCHARGE PLAN Discharge Destination: Home with ghada providing 24 hour care/oversight Care Assessment: n/a Transportation: [facility] [place] [facility] will transport on 02/19/21, 11am merchandise pickup/receiving associate. Special Instructions/Notes: Sean will need written prescriptions for all medications upon d/c. DISCHARGE TO HOME: Address: [address] [place] [address] [address] Responsible Libertarian: ghada Burns/SARAH, Pharmacy: [facility], Psychiatrist/Mental Health Follow Up: Sean has an appointment with Roro Barragan, [facility] [address], on 02/25/21 at 10:30am. Roro Barragan's phone number is [phone]. [phone]. The fax number is [phone]. Primary Care Follow Up:Sean has an appointment with Dr. Castaneda on 03/09/21 at 7:30am for lab and 9:30am for review with physician. Dr. Castaneda's phone number is [phone]. [phone]. 's fax number is [phone].
--- NOTE | 2021-02-18 14:54 | NUR ---
Nursing note: Pt has been pleasant, med compliant and cooperative this shift. He denies having any pain/concerns. No behaviors noted. He is currently in the day room. Will continue to monitor.
[2021-02-18 15:40] VITALS: BP 152/80
[2021-02-18] MEDS: metFORMIN 500 MG TABLET PO SCH (17:35)
[2021-02-18] MEDS: DONEPEZIL HCL 10 MG TABLET PO SCH (20:46)
[2021-02-18] MEDS: traZODone 50 MG TABLET. PO SCH (20:46)
[2021-02-18] MEDS: ATORVASTATIN CALCIUM 10 MG TABLET. PO SCH (20:46)
[2021-02-18] MEDS: QUEtiapine 25 MG TABLET. PO SCH (20:46)
--- NOTE | 2021-02-18 21:40 | PDOC ---
Exam Note: Xavi Note: Please also refer to the separate dictated note~for this date of service dictated separately.~Patient seen individually. Discussed the patient with Nursing staff reviewed the chart.~Reviewed interim history and current functioning. Reviewed vital signs,~Labs/ Radiology~and current medications noted below. Continue current treatment with the changes noted in the dictated addendum note Assessment: Vital Signs/I&O: Vital Signs Date Time Temp Pulse Resp B/P (MAP) Pulse Ox O2 Delivery O2 Flow Rate FiO2 02/18/21 15:40 97.8 84 16 152/80 (104) 96 Room Air I & O 02/17/21 02/17/21 02/18/21 15:00 23:00 07:00 Intake Total 840 ml 600 ml Balance 840 ml 600 ml Current Medications: Meds: Current Medications Medications (Trade) Dose Ordered Sig/Melinda Route PRN Reason Start Time Stop Time Status Last Admin Dose Admin Donepezil HCl (Aricept) 10 mg QHS PO 02/08/21 21:00 02/18/21 20:46 Trazodone HCl (Desyrel) 12.5 mg PRN TID PRN PO AGITATION/ANXIETY 02/08/21 20:00 Trazodone HCl (Desyrel) 50 mg QHS PO 02/08/21 21:00 02/18/21 20:46 Sertraline HCl (Zoloft) 12.5 mg DAILY PO 02/09/21 09:00 02/10/21 18:19 DC 02/10/21 08:40 Acetaminophen (Tylenol) 650 mg PRN Q6HRS PRN PO MILD PAIN / TEMP > 100.3'F 02/08/21 21:30 Multi-Ingredient Ointment (Analgesic [place]) 1 melchor PRN QID PRN TP MUSCLE PAIN 02/08/21 21:30 Al Hydroxide/Mg Hydroxide (Mylanta Plus Xs) 15 ml PRN AFTMEALHC PRN PO DYSPEPSIA 02/08/21 21:30 Magnesium Hydroxide (Milk Of Magnesia) 2,400 mg PRN QHS PRN PO CONSTIPATION 02/08/21 21:30 Amlodipine Besylate (Norvasc) 10 mg DAILY PO 02/09/21 11:00 02/18/21 07:56 Cetirizine HCl (ZyrTEC) 10 mg DAILY PO 02/09/21 11:00 02/18/21 07:55 Lisinopril (Prinivil) 2.5 mg DAILY PO 02/09/21 11:00 02/18/21 07:55 Metformin HCl (Glucophage) 500 mg DAILYWSUP PO 02/09/21 17:00 02/18/21 17:35 Tamsulosin HCl (Flomax) 0.4 mg DAILY PO 02/09/21 11:00 02/18/21 07:55 Atorvastatin Calcium (Lipitor) 5 mg QHS PO 02/09/21 21:00 02/18/21 20:46 Sertraline HCl (Zoloft) 25 mg DAILY PO 02/11/21 09:00 02/18/21 07:55 Quetiapine Fumarate (SEROquel) 25 mg QHS PO 02/11/21 21:00 02/18/21 20:46 I have reviewed the current psychotropics carefully including drug interactions. Risk benefit ratio favors no change other than as noted in my dictated progress note. Diagnosis: Problems: (1) Impulse control disorder, unspecified (2) Anxiety disorder, unspecified (3) Dementia, vascular, with depression (4) Dementia, vascular, with delusions (5) Dementia in Alzheimer's disease with depression (6) Dementia in Alzheimer's disease with delusions (7) Major neurocognitive disorder (8) Dementia in Alzheimer's disease with early onset with behavioral disturbance FAROOQ DUMONT MD Feb 18, 2021 21:40
--- NOTE | 2021-02-18 23:19 | NUR ---
Nursing Note The patient was located in the day room for his assessment and medication pass. The patient took his medication whole and was pleasant during interactions. The patient was alert to name, date and location. The patient walked in the hallway before finally settling down in his room. Currently sleeping in his room.
[2021-02-19] MEDS ORDERED: METH57CR17 TP (02:13)
[2021-02-19] MEDS ORDERED: ACET325T21 PO (02:15)
[2021-02-19] MEDS ORDERED: QUET25TA5 PO (02:17)
[2021-02-19] MEDS ORDERED: MAG30ORA2 PO (02:19)
[2021-02-19] MEDS ORDERED: MAGN400O7 PO (02:19)
[2021-02-19] MEDS ORDERED: CHOL10004 PO (02:20)
[2021-02-19 06:33] VITALS: BP 147/75
[2021-02-19 08:11] VITALS: BP 147/75
[2021-02-19] MEDS: SERTRALINE 25 MG TABLET. PO SCH (08:11)
[2021-02-19] MEDS: CETIRIZINE HCL 10 MG TABLET PO SCH (08:11)
[2021-02-19] MEDS: LISINOPRIL 2.5 MG TABLET PO SCH (08:11)
[2021-02-19] MEDS: TAMSULOSIN 0.4 MG CAP.ER.24H. PO SCH (08:11)
[2021-02-19] MEDS: amLODIPine BESYLATE 10 MG TABLET PO SCH (08:11)
--- NOTE | 2021-02-19 08:38 | NUR ---
Pt calm and appropriate this morning. He appears to be in pleasant spirits. Pt compliant with medications and absent of disruptive behaviors on the unit. Plan of care continues, preparing for d/c.
--- NOTE | 2021-02-19 10:05 | NUR ---
Received the following order from Dr Hung: give Zyprexa 5 mg PO one time for anxiety.
--- NOTE | 2021-02-19 11:27 | NUR ---
Transition Record was faxed to follow-up provider with the following elements: Reason for admission, procedures, tests, principal diagnosis, pending studies, patient instructions, 14/11 contact information for unit, phone number to obtain pending test results, plan for follow-up care, physician follow-up, advanced directive information, and medication list with dose, duration and instructions. This information was included in the following documents: History and physical, lab results, study results, progress notes, social work planning form, DC instruction form, patient visit summary, and medication reconciliation form. Date & time record faxed: 02/19/21 [phone] & [phone] Record faxed to: Dr Castaneda (f [phone]), [facility]oro [facility] (f [phone]) Record discussed with/ report given to: Jef Agrawal/SARA ( [phone]) and gave report
--- NOTE | 2021-02-19 22:03 | PDOC ---
Exam Note: Xavi Note: Please also refer to the separate dictated note~for this date of service dictated separately.~Patient seen individually. Discussed the patient with Nursing staff reviewed the chart.~Reviewed interim history and current functioning. Reviewed vital signs,~Labs/ Radiology~and current medications noted below. Continue current treatment with the changes noted in the dictated addendum note Assessment: Vital Signs/I&O: Vital Signs Date Time Temp Pulse Resp B/P (MAP) Pulse Ox O2 Delivery O2 Flow Rate FiO2 02/19/21 08:11 69 147/75 02/19/21 06:33 98.1 18 97 Room Air I & O 02/18/21 02/18/21 02/19/21 15:00 23:00 07:00 Intake Total 720 ml 480 ml Balance 720 ml 480 ml Current Medications: Meds: Current Medications Medications (Trade) Dose Ordered Sig/Melinda Route PRN Reason Start Time Stop Time Status Last Admin Dose Admin Donepezil HCl (Aricept) 10 mg QHS PO 02/08/21 21:00 02/19/21 11:30 DC 02/18/21 20:46 Trazodone HCl (Desyrel) 12.5 mg PRN TID PRN PO AGITATION/ANXIETY 02/08/21 20:00 02/19/21 11:30 DC Trazodone HCl (Desyrel) 50 mg QHS PO 02/08/21 21:00 02/19/21 11:30 DC 02/18/21 20:46 Sertraline HCl (Zoloft) 12.5 mg DAILY PO 02/09/21 09:00 02/10/21 18:19 DC 02/10/21 08:40 Acetaminophen (Tylenol) 650 mg PRN Q6HRS PRN PO MILD PAIN / TEMP > 100.3'F 02/08/21 21:30 02/19/21 11:30 DC Multi-Ingredient Ointment (Analgesic [place]) 1 melchor PRN QID PRN TP MUSCLE PAIN 02/08/21 21:30 02/19/21 11:30 DC Al Hydroxide/Mg Hydroxide (Mylanta Plus Xs) 15 ml PRN AFTMEALHC PRN PO DYSPEPSIA 02/08/21 21:30 02/19/21 11:30 DC Magnesium Hydroxide (Milk Of Magnesia) 2,400 mg PRN QHS PRN PO CONSTIPATION 02/08/21 21:30 02/19/21 11:30 DC Amlodipine Besylate (Norvasc) 10 mg DAILY PO 02/09/21 11:00 02/19/21 11:30 DC 02/19/21 08:11 Cetirizine HCl (ZyrTEC) 10 mg DAILY PO 02/09/21 11:00 02/19/21 11:30 DC 02/19/21 08:11 Lisinopril (Prinivil) 2.5 mg DAILY PO 02/09/21 11:00 02/19/21 11:30 DC 02/19/21 08:11 Metformin HCl (Glucophage) 500 mg DAILYWSUP PO 02/09/21 17:00 02/19/21 11:30 DC 02/18/21 17:35 Tamsulosin HCl (Flomax) 0.4 mg DAILY PO 02/09/21 11:00 02/19/21 11:30 DC 02/19/21 08:11 Atorvastatin Calcium (Lipitor) 5 mg QHS PO 02/09/21 21:00 02/19/21 11:30 DC 02/18/21 20:46 Sertraline HCl (Zoloft) 25 mg DAILY PO 02/11/21 09:00 02/19/21 11:30 DC 02/19/21 08:11 Quetiapine Fumarate (SEROquel) 25 mg QHS PO 02/11/21 21:00 02/19/21 11:30 DC 02/18/21 20:46 Olanzapine (ZyPREXA ZYDIS) 5 mg 1X ONCE PO 02/19/21 10:15 02/19/21 10:22 DC 02/19/21 10:15 Current Medications Medications (Trade) Dose Ordered Sig/Melinda Route PRN Reason Start Time Stop Time Status Last Admin Dose Admin Olanzapine (ZyPREXA ZYDIS) 5 mg 1X ONCE PO 02/19/21 10:15 02/19/21 10:22 DC 02/19/21 10:15 I have reviewed the current psychotropics carefully including drug interactions. Risk benefit ratio favors no change other than as noted in my dictated progress note. 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
--- NOTE | 2021-02-21 10:04 | PDOC ---
Exam Note: Xavi Note: This note is a late entry for 02/17/2021 covers elements not covered in my initial note. Subjective: The patient was seen individually in the evening of 02/17/2021 with Elvia NIÑO, discussed and reviewed the chart. The patient slept 6-1/2 hours previous night. He remains confused, otherwise, very appropriate, pleasant, smiling as I met with him. Review of Systems: No CV, , pulmonary, eye, ENT system symptoms on review. Reliability poor. Mental Status Exam: The patient is oriented to himself. Insight and judgment, recent and remote memory, attention and concentration, fund of knowledge is poor consistent with his diagnoses. Laboratory Data: Reviewed. Impression: Major neurocognitive disorder Alzheimer, vascular with delusions, depression, behavioral disturbance. Anxiety disorder unspecified. Impulse control disorder unspecified. Plan: Maintain psychotropics unchanged. We may consider transition back home with his niece later this week. Assessment: Vital Signs/I&O: Vital Signs Date Time Temp Pulse Resp B/P (MAP) Pulse Ox O2 Delivery O2 Flow Rate FiO2 02/19/21 08:11 69 147/75 02/19/21 06:33 98.1 18 97 Room Air Current Medications: Meds: Current Medications Medications (Trade) Dose Ordered Sig/Melinda Route PRN Reason Start Time Stop Time Status Last Admin Dose Admin Donepezil HCl (Aricept) 10 mg QHS PO 02/08/21 21:00 02/19/21 11:30 DC 02/18/21 20:46 Trazodone HCl (Desyrel) 12.5 mg PRN TID PRN PO AGITATION/ANXIETY 02/08/21 20:00 02/19/21 11:30 DC Trazodone HCl (Desyrel) 50 mg QHS PO 02/08/21 21:00 02/19/21 11:30 DC 02/18/21 20:46 Sertraline HCl (Zoloft) 12.5 mg DAILY PO 02/09/21 09:00 02/10/21 18:19 DC 02/10/21 08:40 Acetaminophen (Tylenol) 650 mg PRN Q6HRS PRN PO MILD PAIN / TEMP > 100.3'F 02/08/21 21:30 02/19/21 11:30 DC Multi-Ingredient Ointment (Analgesic [place]) 1 melchor PRN QID PRN TP MUSCLE PAIN 02/08/21 21:30 02/19/21 11:30 DC Al Hydroxide/Mg Hydroxide (Mylanta Plus Xs) 15 ml PRN AFTMEALHC PRN PO DYSPEPSIA 02/08/21 21:30 02/19/21 11:30 DC Magnesium Hydroxide (Milk Of Magnesia) 2,400 mg PRN QHS PRN PO CONSTIPATION 02/08/21 21:30 02/19/21 11:30 DC Amlodipine Besylate (Norvasc) 10 mg DAILY PO 02/09/21 11:00 02/19/21 11:30 DC 02/19/21 08:11 Cetirizine HCl (ZyrTEC) 10 mg DAILY PO 02/09/21 11:00 02/19/21 11:30 DC 02/19/21 08:11 Lisinopril (Prinivil) 2.5 mg DAILY PO 02/09/21 11:00 02/19/21 11:30 DC 02/19/21 08:11 Metformin HCl (Glucophage) 500 mg DAILYWSUP PO 02/09/21 17:00 02/19/21 11:30 DC 02/18/21 17:35 Tamsulosin HCl (Flomax) 0.4 mg DAILY PO 02/09/21 11:00 02/19/21 11:30 DC 02/19/21 08:11 Atorvastatin Calcium (Lipitor) 5 mg QHS PO 02/09/21 21:00 02/19/21 11:30 DC 02/18/21 20:46 Sertraline HCl (Zoloft) 25 mg DAILY PO 02/11/21 09:00 02/19/21 11:30 DC 02/19/21 08:11 Quetiapine Fumarate (SEROquel) 25 mg QHS PO 02/11/21 21:00 02/19/21 11:30 DC 02/18/21 20:46 Olanzapine (ZyPREXA ZYDIS) 5 mg 1X ONCE PO 02/19/21 10:15 02/19/21 10:22 DC 02/19/21 10:15 I have reviewed the current psychotropics carefully including drug interactions. Risk benefit ratio favors no change other than as noted in my dictated progress note. 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
--- NOTE | 2021-02-21 10:19 | PDOC ---
Exam Note: Xavi Note: This note is a late entry for 02/18/2021 covers elements not covered in my initial note. Subjective: The patient was reviewed at treatment team meeting individually in the morning on 02/18/2021 with Cheyanne Regan, Julianna Suarez, and Becky Macario (executive secretary social welfare), Helen, activity therapy and Elvia NIÑO, discussed and reviewed the chart. The patient slept 5-3/4 hours previous night. Patients ghada Bustamante attended the lengthy treatment team meeting. Patient scores 13 out of 30 in the mini-mental status exam. Sleeping about 6 hours average. Appetite is 100%. He will be going to outpatient treatment at the OR. Dianna indicated she is time clock repairer caregiver for him at home. He is pleasant, confused, smiling as I met with him. Review of Systems: No CV, , pulmonary, eye, ENT system symptoms on review. R eliability poor. Mental Status Exam: The patient is oriented to himself. Insight and judgment, recent and remote memory, attention and concentration, fund of knowledge is poor consistent with his diagnoses. Laboratory Data: Reviewed. Impression: Major neurocognitive disorder Alzheimer, vascular with delusions, depression, behavioral disturbance. Anxiety disorder unspecified. Impulse control disorder unspecified. Plan: Maintain psychotropics unchanged. I had a lengthy discussion with the niece about safety with home care and since she is time clock repairer, she is well aware of the precautions which we addressed. Reviewed drug interactions and risk- benefit ratio. Follow up at the OR. Transition to home on 02/19. Assessment: Vital Signs/I&O: Vital Signs Date Time Temp Pulse Resp B/P (MAP) Pulse Ox O2 Delivery O2 Flow Rate FiO2 02/19/21 08:11 69 147/75 02/19/21 06:33 98.1 18 97 Room Air Current Medications: Meds: Current Medications Medications (Trade) Dose Ordered Sig/Melinda Route PRN Reason Start Time Stop Time Status Last Admin Dose Admin Donepezil HCl (Aricept) 10 mg QHS PO 02/08/21 21:00 02/19/21 11:30 DC 02/18/21 20:46 Trazodone HCl (Desyrel) 12.5 mg PRN TID PRN PO AGITATION/ANXIETY 02/08/21 20:00 02/19/21 11:30 DC Trazodone HCl (Desyrel) 50 mg QHS PO 02/08/21 21:00 02/19/21 11:30 DC 02/18/21 20:46 Sertraline HCl (Zoloft) 12.5 mg DAILY PO 02/09/21 09:00 02/10/21 18:19 DC 02/10/21 08:40 Acetaminophen (Tylenol) 650 mg PRN Q6HRS PRN PO MILD PAIN / TEMP > 100.3'F 02/08/21 21:30 02/19/21 11:30 DC Multi-Ingredient Ointment (Analgesic [place]) 1 melchor PRN QID PRN TP MUSCLE PAIN 02/08/21 21:30 02/19/21 11:30 DC Al Hydroxide/Mg Hydroxide (Mylanta Plus Xs) 15 ml PRN AFTMEALHC PRN PO DYSPEPSIA 02/08/21 21:30 02/19/21 11:30 DC Magnesium Hydroxide (Milk Of Magnesia) 2,400 mg PRN QHS PRN PO CONSTIPATION 02/08/21 21:30 02/19/21 11:30 DC Amlodipine Besylate (Norvasc) 10 mg DAILY PO 02/09/21 11:00 02/19/21 11:30 DC 02/19/21 08:11 Cetirizine HCl (ZyrTEC) 10 mg DAILY PO 02/09/21 11:00 02/19/21 11:30 DC 02/19/21 08:11 Lisinopril (Prinivil) 2.5 mg DAILY PO 02/09/21 11:00 02/19/21 11:30 DC 02/19/21 08:11 Metformin HCl (Glucophage) 500 mg DAILYWSUP PO 02/09/21 17:00 02/19/21 11:30 DC 02/18/21 17:35 Tamsulosin HCl (Flomax) 0.4 mg DAILY PO 02/09/21 11:00 02/19/21 11:30 DC 02/19/21 08:11 Atorvastatin Calcium (Lipitor) 5 mg QHS PO 02/09/21 21:00 02/19/21 11:30 DC 02/18/21 20:46 Sertraline HCl (Zoloft) 25 mg DAILY PO 02/11/21 09:00 02/19/21 11:30 DC 02/19/21 08:11 Quetiapine Fumarate (SEROquel) 25 mg QHS PO 02/11/21 21:00 02/19/21 11:30 DC 02/18/21 20:46 Olanzapine (ZyPREXA ZYDIS) 5 mg 1X ONCE PO 02/19/21 10:15 02/19/21 10:22 DC 02/19/21 10:15 I have reviewed the current psychotropics carefully including drug interactions. Risk benefit ratio favors no change other than as noted in my dictated progress note. 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
--- NOTE | 2021-02-21 17:28 | DS ---
DATE OF DISCHARGE: 02/19/2021 DISCHARGE SUMMARY/PSYCHIATRIC PROGRESS NOTE This is a late entry, date of service 02/19/2021, covers elements not covered in my initial note. REASON FOR ADMISSION: Please refer to the admission history for details. Briefly, the patient is a 70-year-old male with fairly advanced dementia, referred from the [facility] in [place] where he presented from home where he resides with his niece who is his full-time caregiver. He was increasingly hostile, aggressive towards his niece at home, agitated, yelling out, restless, worsening sundowning. The niece was unable to manage him at home. He was impulsive, referred for inpatient psychiatric stabilization, having failed outpatient psychiatric interventions. SIGNIFICANT FINDINGS AND CLINICAL COURSE: Following admission, the patient was seen daily individually by myself from a psychiatric standpoint, medical followup, Dr. Zarate/Dr Collins. The patient was quite confused, somewhat depressed, anxious, restless. Adjustments were made in his psychotropics. He seemed to respond to a combination of Zoloft 25 mg a day, trazodone 50 mg at bedtime, Aricept 10 mg at bedtime, Seroquel 25 mg at bedtime, trazodone 12.5 mg t.i.d. p.r.n. anxiety, agitation. Prior to discharge, the patient was much improved, still confused, but not aggressive, disruptive. MENTAL STATUS EXAMINATION AT DISCHARGE: The patient was pleasant, verbal, smiling, oriented to himself. Insight, judgment, recent and remote memory, attention, concentration, fund of knowledge poor consistent with his diagnoses. FINAL DIAGNOSES: Major neurocognitive disorder, Alzheimer, vascular with delusion, depression, behavioral disturbance, anxiety disorder, unspecified; impulse control disorder, unspecified. Rest unchanged from admission. DISCHARGE MEDICATIONS: Please refer to [facility]AD. DISCHARGE INSTRUCTIONS: Outpatient psychiatric and medical followup outpatient as arranged prior to discharge. Time for discharge day management greater than 30 minutes. RUBEN/DEYSI GAINES: Bennett TID: [id number]
== END 2021-02-19 11:30 | disposition home or self-care (01) | DRG 57 ==
LOC: GEROPSY 17:15
PROVIDERS: ADMIT Psychiatry & Neurology Psychiatry; ATTEND Psychiatry & Neurology Psychiatry
DX: G30.9 Alzheimer's disease, unspecified (principal); F05 Delirium due to known physiological condition; F01.51 Vascular dementia, unspecified severity, with behavioral disturbance; F02.81 Dementia in other diseases classified elsewhere, unspecified severity, with behavioral disturbance; E78.5 Hyperlipidemia, unspecified; E11.9 Type 2 diabetes mellitus without complications; Z20.822 Contact with and (suspected) exposure to COVID-19; F32.A Depression, unspecified; N40.0 Benign prostatic hyperplasia without lower urinary tract symptoms; I10 Essential (primary) hypertension; G40.909 Epilepsy, unspecified, not intractable, without status epilepticus; F63.9 Impulse disorder, unspecified; F41.9 Anxiety disorder, unspecified; Z79.899 Other long term (current) drug therapy; Z86.73 Personal history of transient ischemic attack (TIA), and cerebral infarction without residual deficits; Z90.49 Acquired absence of other specified parts of digestive tract
CPT/HCPCS: 36415; 80053; 80061; 81001; 82306; 82607; 82947; 83036; 83540; 83550; 83735; 84436; 84443; 84480; 85025; 85379; 86592; 93005; U0003; 97116; 97530